=== PATIENT | male | born 1990 | race Caucasian/White ===

== ENCOUNTER 2019-06-19 11:50 | Inpatient (IN) | payer OTHER ==
[2019-06-19] MEDS ORDERED: KETOROLAC TROMETHAMINE 30 MG/1 ML VIAL IVPUSH ONE (12:16)
[2019-06-19] MEDS ORDERED: SODIUM CHLORIDE 1,000 ML IV STA ×2 (12:16→14:19)
[2019-06-19 12:47] LABS: BASO % 0.6 % (0-2.0); EOS % 2.1 % (0-4.5); HEMATOCRIT 42.6 % (35.4-49); HEMOGLOBIN 14.6 GM/dL (11.7-16.9); LYMPH % 13.5 % (8-40); MCHC 34.3 g/dl (32.0-35.9); MEAN CELL VOLUME 87.3 fl (80-96); MEAN PLT VOLUME 7.5 fl (7.5-11.1); MONO % 9.7 % (3.8-10.2); NEUT % 74.1 % (42.8-82.8); PLATELET COUNT 261 K/MM3 (134-434); RBC 4.87 M/mm3 (4.00-5.60); RDW 13.3 % (11.9-15.9); WHITE BLOOD COUNT 12.9 K/mm3 (4.0-10.0)
[2019-06-19 13:14] LABS: EPI CELLS 0.8 /HPF (0-5/HPF); HYALINE CASTS 3 /lpf (0-8); PH,URINE 5.5 (5.0-8.0); URINE APPEARANCE CLEAR; URINE BACTERIA 17.4 /hpf (NEGATIVE); URINE BILIRUBIN NEGATIVE (NEGATIVE); URINE COLOR YELLOW; URINE GLUCOSE (UA) NEGATIVE (NEGATIVE); URINE KETONE NEGATIVE (NEGATIVE); URINE LEUK ESTERASE NEGATIVE (NEGATIVE); URINE NITRITE NEGATIVE (NEGATIVE); URINE PROTEIN 2+ (NEGATIVE); URINE RBC 2 /hpf (0-4); URINE UROBILINOGEN 0.2 mg/dL (0.2-1.0); URINE WBC 1 /hpf (0-5)
[2019-06-19 13:14] LABS: ALBUMIN 3.6 g/dl (3.4-5.0); BILIRUBIN,TOTAL 0.5 mg/dL (0.2-1); CALCIUM 8.8 mg/dL (8.5-10.1); CREATININE 2.1 mg/dL (0.55-1.3); POTASSIUM 3.8 mmol/L (3.5-5.1); TOT PROT 6.9 g/dl (6.4-8.2)
--- NOTE | 2019-06-19 14:06 | PDOC ---
History of Present Illness - General History Source: Patient Exam Limitations: No Limitations - History of Present Illness Travel History: No Initial Comments: 06/19/19 14:07 29-year-old otherwise healthy male presents to ED with complaints of bilateral flank pain urinary pressure and suprapubic pressure upon urination. Patient denies history of renal colic, recent illness, recent travel, history of UTI, daily Motrin usage or blood in urine. Patient denies nausea, fever, chills, headache, change in bowel pattern, or skin discoloration Timing/Duration: reports: intermittent Quality: reports: moderate, fullness Abdominal Pain Onset Location: reports: flank Pain Radiation: reports: back, other (Suprapubic) Activities at Onset: reports: none Aggravating Factors: improves with: None Alleviating Factors: improves with: None <Mariaa Freitas - Last Filed: 06/20/19 09:21> <Martin Rivera - Last Filed: 06/24/19 20:11> - General Chief Complaint: Pain, Acute Stated Complaint: PAIN Time Seen by Provider: 06/19/19 12:14 Past History - Travel Traveled outside of the country in the last 30 days: No Close contact w/someone who was outside of country & ill: No - Past Medical History COPD: No - Psycho Social/Smoking Cessation Hx Smoking History: Never smoked Hx Alcohol Use: Yes (Socially on weekends) Substance Use Type: Alcohol Patient Lives Alone: No Lives with/in: spouse/SO <Mariaa Freitas - Last Filed: 06/20/19 09:21> <Martin Rivera - Last Filed: 06/24/19 20:11> - Past Medical History Allergies/Adverse Reactions: Allergies Allergy/AdvReac Type Severity Reaction Status Date / Time No Known Allergies Allergy Verified 06/19/19 13:18 Home Medications: Ambulatory Orders NK [No Known Home Medication] 06/19/19 Review of Systems - Review of Systems Able to Perform ROS?: No Constitutional: No: Symptoms Reported HEENTM: No: Symptoms Reported Respiratory: No: Symptoms reported Cardiac (ROS): No: Symptoms Reported ABD/GI: Yes: Abdominal cramping : Yes: Dysuria, Flank Pain. No: Discharge, Hematuria, Testicular Mass, Testicular Swelling, Testicular Pain Integumentary: No: Symptoms Reported Neurological: No: Symptoms reported Endocrine: No: Symptoms Reported Hematologic/Lymphatic: No: Symptoms Reported <Mariaa Freitas - Last Filed: 06/20/19 09:21> *Physical Exam - Vital Signs Last Vital Signs Temp Pulse Resp BP Pulse Ox 98.1 F 65 18 143/81 98 06/19/19 11:58 06/19/19 11:58 06/19/19 11:58 06/19/19 11:58 06/19/19 11:58 - Physical Exam General Appearance: Yes: Nourished, Appropriately Dressed. No: Apparent Distress HEENT: positive: EOMI, SURAJ, TMs Normal, Pharynx Normal. negative: Pale Conjunctivae Neck: positive: Supple Respiratory/Chest: positive: Lungs Clear, Normal Breath Sounds. negative: Respiratory Distress, Accessory Muscle Use Cardiovascular: positive: Regular Rhythm, Regular Rate. negative: Murmur Gastrointestinal/Abdominal: positive: Soft, Tenderness (Bilateral flank ) Musculoskeletal: negative: CVA Tenderness Extremity: positive: Normal Inspection Integumentary: positive: Normal Color, Warm, Moist Neurologic: positive: Motor Strength 5/5 (Ambulatory) <Mariaa Freitas - Last Filed: 06/20/19 09:21> - Vital Signs Last Vital Signs Temp Pulse Resp BP Pulse Ox 98.2 F 69 18 131/82 100 06/24/19 10:00 06/24/19 10:00 06/24/19 10:00 06/24/19 10:00 06/23/19 09:00 <Martin Rivera - Last Filed: 06/24/19 20:11> ED Treatment Course - LABORATORY CBC & Chemistry Diagram: 06/20/19 06:50 06/20/19 06:50 - ADDITIONAL ORDERS Additional order review: Laboratory Results 06/19/19 06/19/19 06/19/19 12:45 12:35 12:35 Sodium 141 Potassium 3.8 Chloride 107 Carbon Dioxide 29 Anion Gap 5 L BUN 19.0 H Creatinine 2.1 H Est GFR (CKD-EPI)AfAm 47.19 Est GFR (CKD-EPI)NonAf 40.72 Random Glucose 106 Calcium 8.8 Total Bilirubin 0.5 AST 22 ALT 50 Alkaline Phosphatase 145 H Total Protein 6.9 Albumin 3.6 Lipase 104 Urine Color Yellow Urine Appearance Clear Urine pH 5.5 Ur Specific [place] 1.007 L Urine Protein 2+ H Urine Glucose (UA) Negative Urine Ketones Negative Urine Blood 2+ H Urine Nitrite Negative Urine Bilirubin Negative Urine Urobilinogen 0.2 Ur Leukocyte Esterase Negative Urine WBC (Auto) 1 Urine RBC (Auto) 2 Urine Casts (Auto) 3 U Epithel Cells (Auto) 0.8 Urine Bacteria (Auto) 17.4 06/19/19 12:35 RBC 4.87 MCV 87.3 MCHC 34.3 RDW 13.3 MPV 7.5 Neutrophils % 74.1 Lymphocytes % 13.5 Monocytes % 9.7 Eosinophils % 2.1 Basophils % 0.6 - RADIOLOGY Radiology Studies Ordered: Category Date Time Status KIDNEY / RENAL US [US] Stat Ultrasound 06/19/19 13:59 Ordered - Medications Given in the ED: ED Medications Discontinued Medications Generic Name Dose Route Start Last Admin Trade Name Freq PRN Reason Stop Dose Admin Sodium Chloride 1,000 mls @ 1,000 mls/hr 06/19/19 12:16 06/19/19 12:51 Normal Saline - IV 06/19/19 13:15 1,000 mls/hr ASDIR STA Administration Ketorolac Tromethamine 30 mg 06/19/19 12:16 06/19/19 12:51 Toradol Injection - IVPUSH 06/19/19 12:17 30 mg ONCE ONE Administration <Mariaa Freitas - Last Filed: 06/20/19 09:21> - LABORATORY CBC & Chemistry Diagram: 06/23/19 07:15 06/24/19 07:15 - ADDITIONAL ORDERS Additional order review: 06/19/19 12:45 Urine Culture - Final Urine - Urine Clean Catch NO GROWTH OBTAINED 06/19/19 12:35 RBC 4.87 MCV 87.3 MCHC 34.3 RDW 13.3 MPV 7.5 Neutrophils % 74.1 Lymphocytes % 13.5 Monocytes % 9.7 Eosinophils % 2.1 Basophils % 0.6 - Medications Given in the ED: ED Medications Discontinued Medications Generic Name Dose Route Start Last Admin Trade Name Freq PRN Reason Stop Dose Admin Acetaminophen 1,000 mg 06/20/19 05:19 06/20/19 05:30 Ofirmev Injection - IVPB 06/20/19 05:20 1,000 mg ONCE ONE Administration Acetaminophen 650 mg 06/20/19 17:31 06/23/19 02:04 Tylenol - PO 650 mg Q6H PRN Administration PAIN LEVEL 1 - 3 Acetaminophen 1,000 mg 06/20/19 18:04 06/20/19 18:58 Ofirmev Injection - IVPB 06/20/19 18:05 1,000 mg ONCE ONE Administration Famotidine 20 mg 06/21/19 13:45 06/24/19 09:08 Pepcid - PO 20 mg DAILY GISELE Administration Heparin Sodium (Porcine) 5,000 unit 06/20/19 14:00 06/21/19 22:31 Heparin - SQ 5,000 unit TID GISELE Administration Sodium Chloride 1,000 mls @ 1,000 mls/hr 06/19/19 12:16 06/19/19 12:51 Normal Saline - IV 06/19/19 13:15 1,000 mls/hr ASDIR STA Administration Sodium Chloride 1,000 mls @ 1,000 mls/hr 06/19/19 14:19 06/19/19 14:43 Normal Saline - IV 06/19/19 15:18 1,000 mls/hr ASDIR STA Administration Sodium Chloride 1,000 mls @ 83 mls/hr 06/19/19 19:45 06/19/19 20:05 Normal Saline - IV Not Given ASDIR GISELE Ceftriaxone Sodium 1 gm/ 50 mls @ 100 mls/hr 06/19/19 19:45 06/19/19 20:04 Dextrose IVPB 100 mls/hr DAILY GISELE Administration Protocol Sodium Chloride 1,000 mls @ 100 mls/hr 06/19/19 20:00 06/24/19 10:51 1/2 Normal Saline IV Not Given ASDIR GISELE Ketorolac Tromethamine 30 mg 06/19/19 12:16 06/19/19 12:51 Toradol Injection - IVPUSH 06/19/19 12:17 30 mg ONCE ONE Administration Ondansetron HCl 4 mg 06/20/19 18:04 06/20/19 18:52 Zofran Injection IVPB 4 mg Q8H PRN Administration NAUSEA <Martin Rivera - Last Filed: 06/24/19 20:11> Medical Decision Making - Medical Decision Making 06/19/19 13:20 Chief complaint: Bilateral flank pain with pain upon urination causing pressure to the suprapubic area. No other complaints Patient went to urgent care clinic and was sent here for further evaluation. Exam: Bilateral flank tenderness with no CVA tenderness vital signs stable. Plan: Urine, labs, Toradol, IV fluids and will consider imaging 06/19/19 14:21 Laboratory Tests 06/19/19 06/19/19 06/19/19 12:35 12:35 12:35 WBC 12.9 H Hgb 14.6 Hct 42.6 Absolute Neuts (auto) 9.5 H Sodium 141 Potassium 3.8 Chloride 107 Carbon Dioxide 29 Anion Gap 5 L BUN 19.0 H Creatinine 2.1 H Est GFR (CKD-EPI)AfAm 47.19 Est GFR (CKD-EPI)NonAf 40.72 Random Glucose 106 Calcium 8.8 Total Bilirubin 0.5 AST 22 ALT 50 Alkaline Phosphatase 145 H Total Protein 6.9 Albumin 3.6 Lipase 104 Ur Specific [place] Urine Protein Urine Ketones Urine Blood Urine Nitrite Urine Bilirubin Ur Leukocyte Esterase Urine WBC (Auto) Urine RBC (Auto) Urine Bacteria (Auto) C. trachomatis (JOSIAH) N. gonorrhoeae (JOSIAH) 06/19/19 06/19/19 12:45 12:45 WBC Hgb Hct Absolute Neuts (auto) Sodium Potassium Chloride Carbon Dioxide Anion Gap BUN Creatinine Est GFR (CKD-EPI)AfAm Est GFR (CKD-EPI)NonAf Random Glucose Calcium Total Bilirubin AST ALT Alkaline Phosphatase Total Protein Albumin Lipase Ur Specific [place] 1.007 L Urine Protein 2+ H Urine Ketones Negative Urine Blood 2+ H Urine Nitrite Negative Urine Bilirubin Negative Ur Leukocyte Esterase Negative Urine WBC (Auto) 1 Urine RBC (Auto) 2 Urine Bacteria (Auto) 17.4 C. trachomatis (JOSIAH) Pending N. gonorrhoeae (JOSIAH) Pending Noted elevated creatinine and white count. Patient received 1 L of fluid will repeat and order a second. Patient also ordered for kidney ultrasound. patient denies excessive protein intake or diet pills. 06/19/19 14:56 Ultrasound shows both kidneys appear unremarkable without evidence of hydronephrosis or gross renal stones. Patient awaiting repeat BMP <Mariaa Freitas - Last Filed: 06/20/19 09:21> - Medical Decision Making The patient was seen and evaluated in conjunction with PATRICK Freitas under my direct supervision, ancillary studies were reviewed. I independently interviewed and evaluated the patient and I agree with the plan as outlined by PATRICK Freitas. 29y M no pmhx presents with b/l flank pain and Pressure-like sensation when urinating. Patient denies any fever, chills, nausea, vomiting, history of kidney stones recent travel, dysuria. The patient's blood work was reviewed noted for creatinine of 2.1 which is new for the patient, Patient noted to have 2+ blood on urine. Renal ultrasound reveals no signs of hydro. CT abd also did not revewal any acute findings. The patient was Hydrated and his creatinine was rechecked, it is largely unchanged and the patient was admitted for further management of YISEL. <Martin Rivera - Last Filed: 06/24/19 20:11> Discharge - Discharge Information Problems reviewed: Yes <Mariaa Freitas - Last Filed: 06/20/19 09:21> <Martin Rivera - Last Filed: 06/24/19 20:11> - Discharge Information Clinical Impression/Diagnosis: Acute kidney injury Condition: Improved Disposition: HOME
[2019-06-19 16:41] LABS: CALCIUM 7.9 mg/dL (8.5-10.1); POTASSIUM 3.9 mmol/L (3.5-5.1)
--- NOTE | 2019-06-19 17:36 | PDOC ---
*Physical Exam - Vital Signs Last Vital Signs Temp Pulse Resp BP Pulse Ox 99.3 F 61 18 127/74 98 06/19/19 16:47 06/19/19 16:47 06/19/19 11:58 06/19/19 16:47 06/19/19 16:47 - Physical Exam 06/19/19 17:34 Patient endorsed to me to follow BMP Patient seen and evaluated 06/19/19 17: ED Treatment Course - LABORATORY CBC & Chemistry Diagram: 06/19/19 12:35 06/19/19 15:00 - ADDITIONAL ORDERS Additional order review: Laboratory Results 06/19/19 06/19/19 06/19/19 15:00 12:45 12:35 Sodium 143 Potassium 3.9 Chloride 110 H Carbon Dioxide 28 Anion Gap 5 L BUN 20.0 H Creatinine 2.0 H Est GFR (CKD-EPI)AfAm 50.06 Est GFR (CKD-EPI)NonAf 43.19 Random Glucose 97 Calcium 7.9 L Total Bilirubin AST ALT Alkaline Phosphatase Total Protein Albumin Lipase 104 Urine Color Yellow Urine Appearance Clear Urine pH 5.5 Ur Specific [place] 1.007 L Urine Protein 2+ H Urine Glucose (UA) Negative Urine Ketones Negative Urine Blood 2+ H Urine Nitrite Negative Urine Bilirubin Negative Urine Urobilinogen 0.2 Ur Leukocyte Esterase Negative Urine WBC (Auto) 1 Urine RBC (Auto) 2 Urine Casts (Auto) 3 U Epithel Cells (Auto) 0.8 Urine Bacteria (Auto) 17.4 06/19/19 12:35 Sodium 141 Potassium 3.8 Chloride 107 Carbon Dioxide 29 Anion Gap 5 L BUN 19.0 H Creatinine 2.1 H Est GFR (CKD-EPI)AfAm 47.19 Est GFR (CKD-EPI)NonAf 40.72 Random Glucose 106 Calcium 8.8 Total Bilirubin 0.5 AST 22 ALT 50 Alkaline Phosphatase 145 H Total Protein 6.9 Albumin 3.6 Lipase Urine Color Urine Appearance Urine pH Ur Specific [place] Urine Protein Urine Glucose (UA) Urine Ketones Urine Blood Urine Nitrite Urine Bilirubin Urine Urobilinogen Ur Leukocyte Esterase Urine WBC (Auto) Urine RBC (Auto) Urine Casts (Auto) U Epithel Cells (Auto) Urine Bacteria (Auto) 06/19/19 12:35 RBC 4.87 MCV 87.3 MCHC 34.3 RDW 13.3 MPV 7.5 Neutrophils % 74.1 Lymphocytes % 13.5 Monocytes % 9.7 Eosinophils % 2.1 Basophils % 0.6 - Medications Given in the ED: ED Medications Discontinued Medications Generic Name Dose Route Start Last Admin Trade Name Alex PRN Reason Stop Dose Admin Sodium Chloride 1,000 mls @ 1,000 mls/hr 06/19/19 12:16 06/19/19 12:51 Normal Saline - IV 06/19/19 13:15 1,000 mls/hr ASDIR STA Administration Sodium Chloride 1,000 mls @ 1,000 mls/hr 06/19/19 14:19 06/19/19 14:43 Normal Saline - IV 06/19/19 15:18 1,000 mls/hr ASDIR STA Administration Ketorolac Tromethamine 30 mg 06/19/19 12:16 06/19/19 12:51 Toradol Injection - IVPUSH 06/19/19 12:17 30 mg ONCE ONE Administration Medical Decision Making - Medical Decision Making 06/19/19 19:06 Patient endorsed to me to follow lab work and disposition. Patient seen and evaluated states his issues started what he thought was a viral illness, chills and subjective fever which started 5 days ago. Then had some back pressure which progressed to back pain 3 days ago. States he has had no urinary issues in the past however for the past few days he has been having to get up about 4 times to use the bathroom. Lab work reviewed noted patient had an elevated BUN and creatinine. Patient received 2 L of fluid and a repeat BMP showed no improvement in BUN and creatinine Discharge - Discharge Information Problems reviewed: Yes Clinical Impression/Diagnosis: Acute kidney injury Condition: Stable - Admission Yes - Follow up/Referral Referrals: Ortiz Crowder MD [Primary Care Provider] - - Patient Discharge Instructions - Post Discharge Activity
--- NOTE | 2019-06-19 19:44 | PN ---
Teaching Attending Note Name of Resident: Kevin Rosa ATTENDING PHYSICIAN STATEMENT I saw and evaluated the patient. I reviewed the resident's note and discussed the case with the resident. I agree with the resident's findings and plan as documented. SUBJECTIVE: 29-year-old otherwise healthy male presenting complaining of bilateral flank pain, Hoarseness, muscle aches with urinary pressure and suprapubic pressure when attempting to urinate. Denies any history of kidney stones, UTIs. Denied any fevers, chills, nausea, vomiting or bowel movement changes. No reported history of any renal disease. OBJECTIVE: Last Vital Signs Temp Pulse Resp BP Pulse Ox 99.3 F 61 18 127/74 98 06/19/19 16:47 06/19/19 16:47 06/19/19 11:58 06/19/19 16:47 06/19/19 16:47 GENERAL: Well developed, well nourished. Awake and alert. No acute distress. HEENT: Normocephalic, atraumatic. PERRLA, EOMI. No conjunctival pallor. Sclera are non- icteric. Enlarged tonsils bilaterally, injected pharynx. Oropharynx is clear. NECK: Supple. Full ROM. No JVD. Carotid pulses 2+ and symmetric, without bruits. No thyromegaly. No lymphadenopathy. CARDIOVASCULAR: Regular rate and rhythm. No murmurs, rubs, or gallops. Distal pulses are 2+ and symmetric. PULMONARY: No evidence of respiratory distress. Lungs clear to auscultation bilaterally. No wheezing, rales or rhonchi. ABDOMINAL: Soft. Non-tender. Non-distended. No rebound or guarding. No organomegaly. Normoactive bowel sounds. MUSCULOSKELETAL Normal range of motion at all joints. No bony deformities or tenderness. No CVA tenderness. EXTREMITIES: No cyanosis. No clubbing. No edema. No calf tenderness. SKIN: Warm and dry. Normal capillary refill. No rashes. No jaundice. PSYCHIATRIC: Cooperative. Good eye contact. Appropriate mood and affect. Abnormal Lab Results 06/19/19 06/19/19 06/19/19 12:35 12:35 12:45 WBC 12.9 H Absolute Neuts (auto) 9.5 H Chloride Anion Gap 5 L BUN 19.0 H Creatinine 2.1 H Calcium Alkaline Phosphatase 145 H Ur Specific [place] 1.007 L Urine Protein 2+ H Urine Blood 2+ H 06/19/19 15:00 WBC Absolute Neuts (auto) Chloride 110 H Anion Gap 5 LDVT prophylaxisheparin subcutaneously BUN 20.0 H Creatinine 2.0 H Calcium 7.9 L Alkaline Phosphatase Ur Specific [place] Urine Protein Urine Blood Imaging studies reviewed Renal ultrasound reviewedboth kidneys appeared unremarkable without evidence of hydronephrosis or gross renal stones. ASSESSMENT AND PLAN: 29-year-old male with bilateral flank pain, CKD versus [place] prior comparison, 2+ blood and UA, leukocytosisconcerning for possible nephrolithiasis however CT of abdomen pelvis was negative. Suspect possible underlying upper respiratory infection. Influenza swab was negative. Admit to [facility] IV fluid hydration Urine culture pain Tylenol PRN Avoid renal toxins Urine GC chlamydia NAAT I's and O's and daily weights Urine lites DVT prophylaxisheparin subcutaneously
--- NOTE | 2019-06-19 19:44 | CONSULT ---
Consult Consult Specialty:: Nephrology Reason for Consultation:: YISEL - History of Present Illness Chief Complaint: pain on urination History of Present Illness: Pt is a 29 year old male with pmhx of sciatica who presents to the ER with bilateral flank pain and with dysuria. He denies hematuria. He does complain of burning on urination. He was found to be in acute renal failure and I was called to evaluate him. He denies history of renal disease. He denies family history of renal disease from his mother's side. He does take advil and naproxen almost daily. His is with him and says that he does take "alot" of nsaids for pain. He denies shortness of breath or palpitations. He denies fevers but did have chills. - History Source History Provided By: Patient, Family Member - Past Medical History Musculoskeletal: Yes: Other (sciatica) - Alcohol/Substance Use Hx Alcohol Use: Yes (Socially on weekends) - Smoking History Smoking history: Never smoked Home Medications - Allergies Allergies/Adverse Reactions: Allergies Allergy/AdvReac Type Severity Reaction Status Date / Time No Known Allergies Allergy Verified 06/19/19 13:18 - Home Medications Home Medications: Ambulatory Orders NK [No Known Home Medication] 06/19/19 Family Medical History Family History: Denies Review of Systems - Review of Systems Constitutional: reports: Malaise Eyes: reports: No Symptoms HENT: reports: No Symptoms Neck: reports: No Symptoms Cardiovascular: reports: No Symptoms Respiratory: reports: No Symptoms Gastrointestinal: reports: No Symptoms Genitourinary: reports: Dysuria, Flank Pain Musculoskeletal: reports: No Symptoms Integumentary: reports: No Symptoms Neurological: reports: No Symptoms Endocrine: reports: No Symptoms Hematology/Lymphatic: reports: No Symptoms Psychiatric: reports: No Symptoms Physical Exam Vital Signs: Vital Signs Temperature 99.3 F 06/19/19 16:47 Pulse Rate 61 06/19/19 16:47 Respiratory Rate 18 06/19/19 11:58 Blood Pressure 127/74 06/19/19 16:47 O2 Sat by Pulse Oximetry (%) 98 06/19/19 16:47 Constitutional: Yes: Calm Eyes: Yes: Conjunctiva Clear HENT: Yes: Atraumatic Neck: Yes: Supple Cardiovascular: Yes: S1, S2 Respiratory: Yes: CTA Bilaterally Gastrointestinal: Yes: Normal Bowel Sounds, Soft Renal/: Yes: Other (dysuria, tenderness over bladder). No: CVA Tenderness - Left, CVA Tenderness - Right Musculoskeletal: Yes: WNL Edema: No Neurological: Yes: Oriented Psychiatric: Yes: Oriented Labs: CBC, BMP 06/19/19 12:35 06/19/19 15:00 Imaging - Results Ultrasound: Report Reviewed Problem List - Problems (1) Acute kidney injury Code(s): N17.9 - ACUTE KIDNEY FAILURE, UNSPECIFIED Assessment/Plan Current Medications Generic Name Dose Route Start Last Admin Trade Name Freq PRN Reason Stop Dose Admin Sodium Chloride 1,000 mls @ 83 mls/hr 06/19/19 19:45 Normal Saline - IV ASDIR GISELE Impression 1. YISEL 2. UTI/cystitis 3. sciatica 4. nsaid use 5. proteinuria with hematuria Plan - start fluids - repeat labs in am - renal ultrasound report reviewed - send urine and blood cultures - cover with abx for now - send urine eos - check urine lytes and painter airbrush - if there is no improvement in renal function will order further workup - stop nsaids
[2019-06-19] MEDS ORDERED: SODIUM CHLORIDE 1,000 ML IV SCH (19:45)
[2019-06-19] MEDS ORDERED: CEFTRIAXONE 1 GM in DEXTROSE 5%-WATER - 50 ML IVPB SCH (19:45)
[2019-06-19] MEDS ORDERED: CEFTRIAXONE 1 GM/50 ML BAG ONE (19:56)
[2019-06-19] MEDS: SODIUM CHLORIDE 0.45% 1,000 ML IV SCH (20:04)
--- NOTE | 2019-06-19 20:12 | HP ---
CHIEF COMPLAINT: Flank pain, chills and dysuria PCP: Dr. Ortiz Crowder however Pt. has never seen this physician yet. HISTORY OF PRESENT ILLNESS: Pt. is a previously healthy 29 y.o. M presents with bilateral lower back pain since . Pt. states that he has been urinating more frequently over the last 2 days, every 40-50 min, and it is associated with increasing pain in the lower abdomen that radiates up bilaterally to the right and left upper quadrants. Pt. also endorses increasing flank pain during urination. Pt. states that on Friday he had an episode of chills and too Theraflu for it. 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 Pt. endorses last taking Ibuprofen 1 month ago " three or four 200mg tablets" and then last 2 weeks before that. Per also present Pt. takes "alot of ibuprofen." Pt. denies any burning sensation at the penis but rather abdominal pain during urination. Pt. denies any blood in his urine or stool. Pt. states that he uses 2 pillows at night to sleep because of shortness of breath when lying flat. Pt. dneies any history of chest pain or dyspena on exertion. Pt. carries up to 80 pounds of material at his job daily and denies decrease in functional status. Currently after receiving Toradol Pt. states he feels much better. Pt. has not received the Flu vaccine. Pt .states is is sexually active with only his and denies being tested for STDs. Pt. is amenable to being tested for HIV. Pt. denies nausea, vomiting, constipation, or diarrhea. ER course was notable for: (1) Toradol, 2L NS, Renal US (2) UA/UCx., CBC, CMP, GC (3) Recent Travel: No PAST MEDICAL HISTORY: As above PAST SURGICAL HISTORY: Denies Social History: Smoking: Denies Alcohol: 3-4 drinks per week Drugs: Remote use of cocaine x 2 when 16 Family Hx.: Grandmother has HTN; Mother had episode of blue urine 25 years ago while on antibiotics Allergies No Known Allergies Allergy (Verified 06/19/19 13:18) HOME MEDICATIONS: Home Medications Medication Instructions Recorded NK [No Known Home Medication] 06/19/19 REVIEW OF SYSTEMS As above PHYSICAL EXAMINATION Vital Signs - 24 hr 06/19/19 06/19/19 11:58 16:47 Temperature 98.1 F 99.3 F Pulse Rate 65 Pulse Rate [ 61 Left Apical] Respiratory 18 Rate Blood Pressure 143/81 Blood Pressure 127/74 [Right Arm] O2 Sat by Pulse 98 98 Oximetry (%) GENERAL: Awake, alert, and fully oriented, in no acute distress. HEAD: Normal with no signs of trauma. EYES: sclera anicteric, conjunctiva clear. EARS, NOSE, THROAT: Moist mucous membranes. LUNGS: Breath sounds equal, clear to auscultation bilaterally. No wheezes, and no crackles. No accessory muscle use. HEART: Regular rate and rhythm, normal S1 and S2 ABDOMEN: BS+, soft, abdominal discomfort on deep palpation, umbilical hernia, On rectal examination, no external or internal hemorrhoids, no harsha blood, good rectal tone, tender prostate MUSCULOSKELETAL: Normal range of motion at all joints. No bony deformities or tenderness. L. CVA tenderness. UPPER EXTREMITIES: 2+ radial pulses, warm, well-perfused. No cyanosis. No clubbing. No peripheral edema. LOWER EXTREMITIES: Warm, well-perfused. No calf tenderness. No peripheral edema. NEUROLOGICAL: Normal speech. Normal gait. PSYCHIATRIC: Cooperative. Good eye contact. Appropriate mood and affect. SKIN: Warm, dry, normal turgor, no rashes or lesions noted Laboratory Results - last 24 hr 06/19/19 06/19/19 06/19/19 12:35 12:35 12:35 WBC 12.9 H RBC 4.87 Hgb 14.6 Hct 42.6 MCV 87.3 MCH 30.0 MCHC 34.3 RDW 13.3 Plt Count 261 MPV 7.5 Absolute Neuts (auto) 9.5 H Neutrophils % 74.1 Lymphocytes % 13.5 Monocytes % 9.7 Eosinophils % 2.1 Basophils % 0.6 Nucleated RBC % 0 Sodium 141 Potassium 3.8 Chloride 107 Carbon Dioxide 29 Anion Gap 5 L BUN 19.0 H Creatinine 2.1 H Est GFR (CKD-EPI)AfAm 47.19 Est GFR (CKD-EPI)NonAf 40.72 Random Glucose 106 Calcium 8.8 Total Bilirubin 0.5 AST 22 ALT 50 Alkaline Phosphatase 145 H Total Protein 6.9 Albumin 3.6 Lipase 104 Urine Color Urine Appearance Urine pH Ur Specific [place] Urine Protein Urine Glucose (UA) Urine Ketones Urine Blood Urine Nitrite Urine Bilirubin Urine Urobilinogen Ur Leukocyte Esterase Urine WBC (Auto) Urine RBC (Auto) Urine Casts (Auto) U Epithel Cells (Auto) Urine Bacteria (Auto) 06/19/19 06/19/19 12:45 15:00 WBC RBC Hgb Hct MCV MCH MCHC RDW Plt Count MPV Absolute Neuts (auto) Neutrophils % Lymphocytes % Monocytes % Eosinophils % Basophils % Nucleated RBC % Sodium 143 Potassium 3.9 Chloride 110 H Carbon Dioxide 28 Anion Gap 5 L BUN 20.0 H Creatinine 2.0 H Est GFR (CKD-EPI)AfAm 50.06 Est GFR (CKD-EPI)NonAf 43.19 Random Glucose 97 Calcium 7.9 L Total Bilirubin AST ALT Alkaline Phosphatase Total Protein Albumin Lipase Urine Color Yellow Urine Appearance Clear Urine pH 5.5 Ur Specific [place] 1.007 L Urine Protein 2+ H Urine Glucose (UA) Negative Urine Ketones Negative Urine Blood 2+ H Urine Nitrite Negative Urine Bilirubin Negative Urine Urobilinogen 0.2 Ur Leukocyte Esterase Negative Urine WBC (Auto) 1 Urine RBC (Auto) 2 Urine Casts (Auto) 3 U Epithel Cells (Auto) 0.8 Urine Bacteria (Auto) 17.4 ASSESSMENT/PLAN: Pt. is a previously healthy 29 y.o. M presents with bilateral lower back pain since . Pt. states that he has been urinating more frequently over the last 2 days, every 40-50 min, and it is associated with increasing pain in the lower abdomen that radiates up bilaterally to the right and left upper quadrants. Pt. admitted for acute Renal failure. #Acute Renal Failure BUN/Cr.: 19/2.1---> after 1 L NS---> 20/2.0 eGFR: 43 UA: 2+ protein, 2+ blood, low specific gravity : 1.007 Renal US negative, f/u Abdominal CT Renal failure likely due to NSAID use, will rule out concomitant stone and infection Will obtain BCx, f/u UCx. F/u Rpt. UA, urine electrolytes and eosinophils Will treat emprically with Ceftriaxone as Pt. has L. CVA tenderness and WBC count to 12.9. If stone is not found will cancel antibiotic. Pt. reports chills 5 days ago and no fever here but will obtain CT scan to evaluate for other abdominal etiologies. Elevated WBC count is within the range for stress as the causative factor for elevation Consult to Nephrology (Dr. Feliz) appreciated Avoid NSAIDs #FEN NS @ 100 monitor electrolytes and replete as needed Regular Diet #DVT Ppx. Early Ambulation Visit type - Emergency Visit Emergency Visit: Yes ED Registration Date: 06/19/19 Care time: The patient presented to the Emergency Department on the above date and was hospitalized for further evaluation of their emergent condition. - New Patient This patient is new to me today: Yes Date on this admission: 06/19/19 - Critical Care Critical Care patient: No ATTENDING PHYSICIAN STATEMENT I saw and evaluated the patient. I reviewed the resident's note and discussed the case with the resident. I agree with the resident's findings and plan as documented. SUBJECTIVE: OBJECTIVE: ASSESSMENT AND PLAN:
[2019-06-19 23:10] VITALS: BMI 28.5
[2019-06-20 00:10] LABS: EPI CELLS 2.1 /HPF (0-5/HPF); HYALINE CASTS 3 /lpf (0-8); URINE APPEARANCE CLEAR; URINE BACTERIA 33.7 /hpf (NEGATIVE); URINE BILIRUBIN NEGATIVE (NEGATIVE); URINE COLOR YELLOW; URINE GLUCOSE (UA) 1+ (NEGATIVE); URINE KETONE NEGATIVE (NEGATIVE); URINE LEUK ESTERASE NEGATIVE (NEGATIVE); URINE NITRITE NEGATIVE (NEGATIVE); URINE PROTEIN 2+ (NEGATIVE); URINE RBC 1 /hpf (0-4); URINE UROBILINOGEN 0.2 mg/dL (0.2-1.0); URINE WBC 2 /hpf (0-5)
[2019-06-20] MEDS ORDERED: ACETAMINOPHEN 1000 MG/100 ML VIAL (NON FORMULARY) IVPB ONE ×2 (05:19→18:04)
[2019-06-20 08:14] LABS: BILIRUBIN,TOTAL 0.7 mg/dL (0.2-1); BLOOD UREA NITROGEN 19.3 mg/dL (7-18); CALCIUM 8.5 mg/dL (8.5-10.1); CREATININE 2.4 mg/dL (0.55-1.3); MAGNESIUM 1.8 mg/dL (1.8-2.4); POTASSIUM 4.1 mmol/L (3.5-5.1)
[2019-06-20 08:19] LABS: BASO % 0.4 % (0-2.0); EOS % 2.5 % (0-4.5); HEMATOCRIT 38.7 % (35.4-49); HEMOGLOBIN 13.4 GM/dL (11.7-16.9); LYMPH % 13.9 % (8-40); MCH 30.2 pg (25.7-33.7); MCHC 34.8 g/dl (32.0-35.9); MEAN CELL VOLUME 86.9 fl (80-96); MEAN PLT VOLUME 7.8 fl (7.5-11.1); MONO % 9.9 % (3.8-10.2); NEUT % 73.3 % (42.8-82.8); PLATELET COUNT 247 K/MM3 (134-434); RBC 4.45 M/mm3 (4.00-5.60); RDW 13.4 % (11.9-15.9); WHITE BLOOD COUNT 10.4 K/mm3 (4.0-10.0)
[2019-06-20 08:55] LABS: INR 1.07 (0.83-1.09); PROTHROMBIN TIME (PATIENT) 12.6 SEC (9.7-13.0)
--- NOTE | 2019-06-20 12:38 | PN ---
Progress Note (short form) - Note Progress Note: Subjective: no fever or chills. reports lumbar paraspinal pain , which is better today. no abd pain today but previously had the back pain radiates to his groins. complains of h/o sciatica, plays soccer. heavy ibuprofen use . reports fever and chills few days ago. has sore throat Vital Signs: Last Vital Signs Temp Pulse Resp BP Pulse Ox 98.9 F 74 20 142/76 99 06/20/19 09:00 06/20/19 09:00 06/20/19 09:00 06/20/19 09:00 06/20/19 09:00 Laboratory Results - last 24 hr 06/19/19 06/19/19 06/19/19 12:35 12:35 12:35 WBC 12.9 H RBC 4.87 Hgb 14.6 Hct 42.6 MCV 87.3 MCH 30.0 MCHC 34.3 RDW 13.3 Plt Count 261 MPV 7.5 Absolute Neuts (auto) 9.5 H Neutrophils % 74.1 Lymphocytes % 13.5 Monocytes % 9.7 Eosinophils % 2.1 Basophils % 0.6 Nucleated RBC % 0 PT with INR INR Sodium 141 Potassium 3.8 Chloride 107 Carbon Dioxide 29 Anion Gap 5 L BUN 19.0 H Creatinine 2.1 H Est GFR (CKD-EPI)AfAm 47.19 Est GFR (CKD-EPI)NonAf 40.72 Random Glucose 106 Hemoglobin A1c % Calcium 8.8 Phosphorus Magnesium Total Bilirubin 0.5 AST 22 ALT 50 Alkaline Phosphatase 145 H Total Protein 6.9 Albumin 3.6 Lipase 104 TSH Urine Color Urine Appearance Urine pH Ur Specific [place] Urine Protein Urine Glucose (UA) Urine Ketones Urine Blood Urine Nitrite Urine Bilirubin Urine Urobilinogen Ur Leukocyte Esterase Urine WBC (Auto) Urine RBC (Auto) Urine Casts (Auto) U Epithel Cells (Auto) Urine Bacteria (Auto) Ur Random Creatinine U Random Total Protein Ur Random Sodium Ur Random Potassium Ur Random Chloride Urine Creatinine Protein/Creatinin Ratio Influenza A (Rapid) Influenza B (Rapid) 06/19/19 06/19/19 06/19/19 12:45 15:00 20:05 WBC RBC Hgb Hct MCV MCH MCHC RDW Plt Count MPV Absolute Neuts (auto) Neutrophils % Lymphocytes % Monocytes % Eosinophils % Basophils % Nucleated RBC % PT with INR INR Sodium 143 Potassium 3.9 Chloride 110 H Carbon Dioxide 28 Anion Gap 5 L BUN 20.0 H Creatinine 2.0 H Est GFR (CKD-EPI)AfAm 50.06 Est GFR (CKD-EPI)NonAf 43.19 Random Glucose 97 Hemoglobin A1c % Calcium 7.9 L Phosphorus Magnesium Total Bilirubin AST ALT Alkaline Phosphatase Total Protein Albumin Lipase TSH 0.49 Urine Color Yellow Urine Appearance Clear Urine pH 5.5 Ur Specific [place] 1.007 L Urine Protein 2+ H Urine Glucose (UA) Negative Urine Ketones Negative Urine Blood 2+ H Urine Nitrite Negative Urine Bilirubin Negative Urine Urobilinogen 0.2 Ur Leukocyte Esterase Negative Urine WBC (Auto) 1 Urine RBC (Auto) 2 Urine Casts (Auto) 3 U Epithel Cells (Auto) 0.8 Urine Bacteria (Auto) 17.4 Ur Random Creatinine U Random Total Protein Ur Random Sodium Ur Random Potassium Ur Random Chloride Urine Creatinine Protein/Creatinin Ratio Influenza A (Rapid) Influenza B (Rapid) 06/19/19 06/19/19 06/19/19 20:05 20:15 20:15 WBC RBC Hgb Hct MCV MCH MCHC RDW Plt Count MPV Absolute Neuts (auto) Neutrophils % Lymphocytes % Monocytes % Eosinophils % Basophils % Nucleated RBC % PT with INR INR Sodium Potassium Chloride Carbon Dioxide Anion Gap BUN Creatinine Est GFR (CKD-EPI)AfAm Est GFR (CKD-EPI)NonAf Random Glucose Hemoglobin A1c % 5.1 Calcium Phosphorus Magnesium Total Bilirubin AST ALT Alkaline Phosphatase Total Protein Albumin Lipase TSH Urine Color Urine Appearance Urine pH Ur Specific [place] Urine Protein Urine Glucose (UA) Urine Ketones Urine Blood Urine Nitrite Urine Bilirubin Urine Urobilinogen Ur Leukocyte Esterase Urine WBC (Auto) Urine RBC (Auto) Urine Casts (Auto) U Epithel Cells (Auto) Urine Bacteria (Auto) Ur Random Creatinine 109.0 U Random Total Protein 60.2 H Ur Random Sodium Ur Random Potassium Ur Random Chloride Urine Creatinine 109.0 Protein/Creatinin Ratio 0.6 Influenza A (Rapid) Influenza B (Rapid) 06/19/19 06/19/19 06/19/19 20:15 20:15 20:17 WBC RBC Hgb Hct MCV MCH MCHC RDW Plt Count MPV Absolute Neuts (auto) Neutrophils % Lymphocytes % Monocytes % Eosinophils % Basophils % Nucleated RBC % PT with INR INR Sodium Potassium Chloride Carbon Dioxide Anion Gap BUN Creatinine Est GFR (CKD-EPI)AfAm Est GFR (CKD-EPI)NonAf Random Glucose Hemoglobin A1c % Calcium Phosphorus Magnesium Total Bilirubin AST ALT Alkaline Phosphatase Total Protein Albumin Lipase TSH Urine Color Yellow Urine Appearance Clear Urine pH 6.0 Ur Specific [place] 1.010 Urine Protein 2+ H Urine Glucose (UA) 1+ H Urine Ketones Negative Urine Blood Trace Urine Nitrite Negative Urine Bilirubin Negative Urine Urobilinogen 0.2 Ur Leukocyte Esterase Negative Urine WBC (Auto) 2 Urine RBC (Auto) 1 Urine Casts (Auto) 3 U Epithel Cells (Auto) 2.1 Urine Bacteria (Auto) 33.7 Ur Random Creatinine U Random Total Protein Ur Random Sodium 55 Ur Random Potassium 13.0 L Ur Random Chloride 48 L Urine Creatinine Protein/Creatinin Ratio Influenza A (Rapid) Negative Influenza B (Rapid) Negative 06/20/19 06/20/19 06/20/19 06:50 06:50 06:50 WBC 10.4 H RBC 4.45 Hgb 13.4 Hct 38.7 MCV 86.9 MCH 30.2 MCHC 34.8 RDW 13.4 Plt Count 247 MPV 7.8 Absolute Neuts (auto) 7.6 Neutrophils % 73.3 Lymphocytes % 13.9 Monocytes % 9.9 Eosinophils % 2.5 Basophils % 0.4 Nucleated RBC % 0 PT with INR 12.60 INR 1.07 Sodium 142 Potassium 4.1 Chloride 110 H Carbon Dioxide 27 Anion Gap 5 L BUN 19.3 H Creatinine 2.4 H Est GFR (CKD-EPI)AfAm 40.15 Est GFR (CKD-EPI)NonAf 34.65 Random Glucose 92 Hemoglobin A1c % Calcium 8.5 Phosphorus 4.0 Magnesium 1.8 Total Bilirubin 0.7 AST 18 ALT 37 Alkaline Phosphatase 126 H Total Protein 6.0 L Albumin 3.0 L Lipase TSH Urine Color Urine Appearance Urine pH Ur Specific [place] Urine Protein Urine Glucose (UA) Urine Ketones Urine Blood Urine Nitrite Urine Bilirubin Urine Urobilinogen Ur Leukocyte Esterase Urine WBC (Auto) Urine RBC (Auto) Urine Casts (Auto) U Epithel Cells (Auto) Urine Bacteria (Auto) Ur Random Creatinine U Random Total Protein Ur Random Sodium Ur Random Potassium Ur Random Chloride Urine Creatinine Protein/Creatinin Ratio Influenza A (Rapid) Influenza B (Rapid) Physical Exam: NAD, MMM. oropharynx is erythematous with enlarged tonsils , with no exudate . No LAP in neck CV: RRR, no MRG Lungs: CTAB Abd: sfot, NT, ND , NL BS Ext : No edema or erythema or rash MS: TTP over lumbar paraspinal muscles . Imaging: CT of abd pelvis and US reports reviewed. Assessment/Plan: 29 y/o man with h/o back pain and sciatica who presented with flank pain and was found to have YISEL 1- YISEL : no prior base line . looks euvolemic. takes ibuprofen and plays soccer. FeNA 0.7 %. proteinuria 600 mg /24 hr NSAIDs us could be causing the renal injury. Had recent sx that suggest URI/ viral infection--->? IgA nephropathy. plays soccer, has muscle aches ---> ? Rhabdo - cont IVF - check CPK ( UA with + blood but only 2 RBCs ) - check resp viral panel - check strep test - monitor Cr. further de to be determined pending response to IVF - No dysuria, no abd tenderness. no frequency. UA clean. urine cx neg ( before Abx). no need for ABx. follwo blood cx - avoid NSAIDS: received toradol in ER 2- BAck pain : has sciatica . paraspinal muscke tenderness . reports soccer ball injuries - doubt UTI /pyelo - check CPK - lumbar spine xray 3- DVT PX : heparin sq Visit type - Emergency Visit Emergency Visit: Yes ED Registration Date: 06/19/19 Care time: The patient presented to the Emergency Department on the above date and was hospitalized for further evaluation of their emergent condition. - New Patient This patient is new to me today: Yes Date on this admission: 06/20/19 - Critical Care Critical Care patient: No
--- NOTE | 2019-06-20 14:14 | EKG ---
Test Reason : Blood Pressure : / mmHG Vent. Rate : 061 BPM Atrial Rate : 061 BPM P-R Int : 146 ms QRS Dur : 090 ms QT Int : 386 ms P-R-T Axes : 068 051 035 degrees QTc Int : 388 ms NORMAL SINUS RHYTHM WITH SINUS ARRHYTHMIA NORMAL ECG Confirmed by MD DILIA, KAROL ([id number]) on 06/20/2019 2:13:50 PM Referred By: Confirmed By:KAROL DOBBS MD
[2019-06-20] MEDS: HEPARIN NA (PORCINE) 5,000 UNITS/ML 1ML VIAL SQ SCH ×2 (15:24→22:19)
[2019-06-20] MEDS: ACETAMINOPHEN 325 MG TABLET (FP) PO PRN (17:41)
[2019-06-20] MEDS ORDERED: ONDANSETRON 4 MG/2 ML VIAL IVPB PRN (18:04)
--- NOTE | 2019-06-20 18:48 | PN ---
Progress Note, Physician History of Present Illness: Pt seen and examined at bedside. He is awake and alert. He feels that the suprapubic pain is improved. He gets some left flank pain. He denies dysuria today. - Current Medication List Current Medications: Active Medications Acetaminophen (Tylenol -) 650 mg PO Q6H PRN PRN Reason: PAIN LEVEL 1 - 3 Last Admin: 06/20/19 17:41 Dose: 650 mg Heparin Sodium (Porcine) (Heparin -) 5,000 unit SQ TID GISELE Last Admin: 06/20/19 15:24 Dose: 5,000 unit Sodium Chloride (1/2 Normal Saline) 1,000 mls @ 100 mls/hr IV ASDIR GISELE Last Admin: 06/19/19 20:04 Dose: 100 mls/hr Ondansetron HCl (Zofran Injection) 4 mg IVPB Q8H PRN PRN Reason: NAUSEA - Objective Vital Signs: Vital Signs Temperature 98.1 F 06/20/19 14:38 Pulse Rate 64 06/20/19 14:38 Respiratory Rate 18 06/20/19 14:38 Blood Pressure 139/93 06/20/19 14:38 O2 Sat by Pulse Oximetry (%) 99 06/20/19 09:00 Constitutional: Yes: Calm Eyes: Yes: Conjunctiva Clear HENT: Yes: Atraumatic Cardiovascular: Yes: S1, S2 Respiratory: Yes: CTA Bilaterally Gastrointestinal: Yes: Soft Musculoskeletal: Yes: WNL Edema: No Integumentary: Yes: Tattoos Neurological: Yes: Oriented Psychiatric: Yes: Oriented Labs: CBC, BMP 06/20/19 06:50 06/20/19 06:50 INR, PTT INR 1.07 (0.83-1.09) 06/20/19 06:50 Problem List - Problems (1) Acute kidney injury Code(s): N17.9 - ACUTE KIDNEY FAILURE, UNSPECIFIED Assessment/Plan Current Medications Generic Name Dose Route Start Last Admin Trade Name Freq PRN Reason Stop Dose Admin Acetaminophen 650 mg 06/20/19 17:31 06/20/19 17:41 Tylenol - PO 650 mg Q6H PRN Administration PAIN LEVEL 1 - 3 Heparin Sodium (Porcine) 5,000 unit 06/20/19 14:00 06/20/19 15:24 Heparin - SQ 5,000 unit TID GISELE Administration Sodium Chloride 1,000 mls @ 100 mls/hr 06/19/19 20:00 06/19/19 20:04 1/2 Normal Saline IV 100 mls/hr ASDIR GISELE Administration Ondansetron HCl 4 mg 06/20/19 18:04 Zofran Injection IVPB Q8H PRN NAUSEA Impression 1. YISEL 2. UTI/cystitis 3. sciatica 4. nsaid use 5. proteinuria with hematuria Plan - cont fluids - renal function worse today - serologic workup ordered - avoid nsaids - follow cultures - hematuria on ua improved
[2019-06-20] MEDS: SODIUM CHLORIDE 0.45% 1,000 ML IV SCH (22:21)
[2019-06-21] MEDS: SODIUM CHLORIDE 0.45% 1,000 ML IV SCH ×2 (02:17→21:59)
[2019-06-21] MEDS: HEPARIN NA (PORCINE) 5,000 UNITS/ML 1ML VIAL SQ SCH ×3 (06:46→22:31)
[2019-06-21 09:04] LABS: EPI CELLS 0.4 /HPF (0-5/HPF); HYALINE CASTS 1 /lpf (0-8); PH,URINE 6.5 (5.0-8.0); URINE APPEARANCE CLEAR; URINE BACTERIA 6.4 /hpf (NEGATIVE); URINE BILIRUBIN NEGATIVE (NEGATIVE); URINE COLOR YELLOW; URINE GLUCOSE (UA) NEGATIVE (NEGATIVE); URINE KETONE NEGATIVE (NEGATIVE); URINE LEUK ESTERASE NEGATIVE (NEGATIVE); URINE NITRITE NEGATIVE (NEGATIVE); URINE PROTEIN NEGATIVE (NEGATIVE); URINE RBC 4 /hpf (0-4); URINE UROBILINOGEN 0.2 mg/dL (0.2-1.0); URINE WBC 1 /hpf (0-5)
[2019-06-21 09:43] LABS: BASO % 0.5 % (0-2.0); EOS % 2.3 % (0-4.5); HEMATOCRIT 38.6 % (35.4-49); HEMOGLOBIN 13.3 GM/dL (11.7-16.9); MCHC 34.5 g/dl (32.0-35.9); MEAN CELL VOLUME 87.1 fl (80-96); MEAN PLT VOLUME 7.4 fl (7.5-11.1); MONO % 7.4 % (3.8-10.2); NEUT % 75.8 % (42.8-82.8); PLATELET COUNT 244 K/MM3 (134-434); RBC 4.43 M/mm3 (4.00-5.60); RDW 13.1 % (11.9-15.9); WHITE BLOOD COUNT 9.4 K/mm3 (4.0-10.0)
[2019-06-21 10:06] LABS: ALBUMIN 3.2 g/dl (3.4-5.0); BILIRUBIN,TOTAL 0.5 mg/dL (0.2-1); CALCIUM 8.4 mg/dL (8.5-10.1); CREATININE 3.1 mg/dL (0.55-1.3); POTASSIUM 3.9 mmol/L (3.5-5.1); TOT PROT 6.4 g/dl (6.4-8.2)
--- NOTE | 2019-06-21 15:53 | PN ---
Teaching Attending Note Name of Resident: Dorina Jones ATTENDING PHYSICIAN STATEMENT I saw and evaluated the patient. I reviewed the resident's note and discussed the case with the resident. I agree with the resident's findings and plan as documented. SUBJECTIVE: back pain is better.No abd pain, no dyuria. No fever or chills. No GE , no N/ V. has GERD sx. N OBJECTIVE: NAD, MMM. CV: RRR, no MRG Lungs: CTAB Abd: soft, NT, ND , NL BS. Ext : No edema or erythema or rash MS: TTP over lumbar paraspinal muscles o n L side . Assessment/Plan: 29 y/o man with h/o back pain and sciatica who presented with flank pain and was found to have YISEL 1- YISEL : worse today. no celar etiology yet. - will d/w dr. Feliz renal biopsy - follow serologies for vasculitis , HIV,hepatitis - cont IVF . - follow resp viral panel - follow throat cx 2- BAck pain: has sciatica .no signs of UTI - lumbar spine xray neg. back pain improved .? related to renal injury 3- DVT PX: heparin sq
--- NOTE | 2019-06-21 16:20 | PN ---
Progress Note, Physician History of Present Illness: Pt seen and examined at bedside. He is awake and alert. He denies fevers or chills. He denies dysuria. He denies rash. - Current Medication List Current Medications: Active Medications Acetaminophen (Tylenol -) 650 mg PO Q6H PRN PRN Reason: PAIN LEVEL 1 - 3 Last Admin: 06/20/19 17:41 Dose: 650 mg Famotidine (Pepcid -) 20 mg PO DAILY [facility] Heparin Sodium (Porcine) (Heparin -) 5,000 unit SQ TID GISELE Last Admin: 06/21/19 06:46 Dose: 5,000 unit Sodium Chloride (1/2 Normal Saline) 1,000 mls @ 100 mls/hr IV ASDIR GISELE Last Admin: 06/21/19 02:17 Dose: 100 mls/hr Ondansetron HCl (Zofran Injection) 4 mg IVPB Q8H PRN PRN Reason: NAUSEA Last Admin: 06/20/19 18:52 Dose: 4 mg - Objective Vital Signs: Vital Signs Temperature 98.3 F 06/21/19 14:24 Pulse Rate 66 06/21/19 14:24 Respiratory Rate 20 06/21/19 14:24 Blood Pressure 140/68 06/21/19 14:24 O2 Sat by Pulse Oximetry (%) 98 06/21/19 09:00 Constitutional: Yes: Calm Eyes: Yes: Conjunctiva Clear HENT: Yes: Atraumatic Neck: Yes: Supple Cardiovascular: Yes: S1, S2 Respiratory: Yes: CTA Bilaterally Gastrointestinal: Yes: Normal Bowel Sounds, Soft Genitourinary: Yes: WNL Musculoskeletal: Yes: WNL Edema: No Neurological: Yes: Oriented Psychiatric: Yes: Oriented Labs: CBC, BMP 06/21/19 09:15 06/21/19 09:15 INR, PTT INR 1.07 (0.83-1.09) 06/20/19 06:50 Problem List - Problems (1) Acute kidney injury Code(s): N17.9 - ACUTE KIDNEY FAILURE, UNSPECIFIED Assessment/Plan Current Medications Generic Name Dose Route Start Last Admin Trade Name Freq PRN Reason Stop Dose Admin Acetaminophen 650 mg 06/20/19 17:31 06/20/19 17:41 Tylenol - PO 650 mg Q6H PRN Administration PAIN LEVEL 1 - 3 Famotidine 20 mg 06/21/19 13:45 Pepcid - PO DAILY GISELE Heparin Sodium (Porcine) 5,000 unit 06/20/19 14:00 06/21/19 06:46 Heparin - SQ 5,000 unit TID GISELE Administration Sodium Chloride 1,000 mls @ 100 mls/hr 06/19/19 20:00 06/21/19 02:17 1/2 Normal Saline IV 100 mls/hr ASDIR GISELE Administration Ondansetron HCl 4 mg 06/20/19 18:04 06/20/19 18:52 Zofran Injection IVPB 4 mg Q8H PRN Administration NAUSEA Laboratory Tests 06/19/19 06/20/19 06/20/19 20:17 06:50 13:42 Creatinine 2.4 H Urine Protein Urine Blood JANEE Screen c-ANCA Proteinase 3 (PR3) p-ANCA Atypical p-ANCA Myeloperoxidase Ab Double Strand DNA Ab Glomerular Base Memb Ab Influenza A (Rapid) Negative Influenza B (Rapid) Negative Group A Strep Rapid Negative 06/21/19 06/21/19 06/21/19 08:30 09:15 09:15 Creatinine 3.1 H Urine Protein Negative Urine Blood Trace JANEE Screen Pending c-ANCA Pending Proteinase 3 (PR3) Pending p-ANCA Pending Atypical p-ANCA Pending Myeloperoxidase Ab Pending Double Strand DNA Ab Pending Glomerular Base Memb Ab Pending Influenza A (Rapid) Influenza B (Rapid) Group A Strep Rapid Impression 1. YISEL 2. UTI/cystitis 3. sciatica 4. nsaid use 5. proteinuria with hematuria Plan - renal function worsening - repeat labs in am - he did get a dose of ketorolac in er - discussed kidney biopsy, IR called - avoid nsaids - follow cultures - UA improving
--- NOTE | 2019-06-21 16:37 | PN ---
Physical Exam: SUBJECTIVE: Patient seen and examined at bedside. pt states that his back pain is improving. pt states that if he needs biopsy he is amenable OBJECTIVE: Vital Signs Period Temp Pulse Resp BP Sys/López Pulse Ox Last 24 Hr 98.2 F-98.4 F 65-73 15-20 122-140/68-93 98-98 GENERAL: The patient is awake, alert, and fully oriented, in no acute distress. HEAD: Normal with no signs of trauma. ENT: moist mucous membranes. LUNGS: Breath sounds equal, clear to auscultation bilaterally, no wheezes, no crackles, no accessory muscle use. HEART: Regular rate and rhythm, S1, S2 without murmur, rub or gallop. ABDOMEN: Soft, nontender, nondistended, normoactive bowel sounds, no guarding. No CVA tenderness EXTREMITIES: 2+ pulses, warm, well-perfused, no edema. NEUROLOGICAL: Cranial nerves II through XII grossly intact. Normal speech PSYCH: Normal mood, normal affect. SKIN: Warm, dry, normal turgor, no rashes or lesions noted Laboratory Last Values WBC 9.4 K/mm3 (4.0-10.0) 06/21/19 09:15 RBC 4.43 M/mm3 (4.00-5.60) 06/21/19 09:15 Hgb 13.3 GM/dL (11.7-16.9) 06/21/19 09:15 Hct 38.6 % (35.4-49) 06/21/19 09:15 MCV 87.1 fl (80-96) 06/21/19 09:15 MCH 30.0 pg (25.7-33.7) 06/21/19 09:15 MCHC 34.5 g/dl (32.0-35.9) 06/21/19 09:15 RDW 13.1 % (11.9-15.9) 06/21/19 09:15 Plt Count 244 K/MM3 (134-434) 06/21/19 09:15 MPV 7.4 fl (7.5-11.1) L 06/21/19 09:15 Absolute Neuts (auto) 7.2 K/mm3 (1.5-8.0) 06/21/19 09:15 Neutrophils % 75.8 % (42.8-82.8) 06/21/19 09:15 Lymphocytes % 14.0 % (8-40) 06/21/19 09:15 Monocytes % 7.4 % (3.8-10.2) 06/21/19 09:15 Eosinophils % 2.3 % (0-4.5) 06/21/19 09:15 Basophils % 0.5 % (0-2.0) 06/21/19 09:15 Nucleated RBC % 0 % (0-0) 06/21/19 09:15 PT with INR 12.60 SEC (9.7-13.0) 06/20/19 06:50 INR 1.07 (0.83-1.09) 06/20/19 06:50 Sodium 142 mmol/L (136-145) 06/21/19 09:15 Potassium 3.9 mmol/L (3.5-5.1) 06/21/19 09:15 Chloride 110 mmol/L (98-107) H 06/21/19 09:15 Carbon Dioxide 26 mmol/L (21-32) 06/21/19 09:15 Anion Gap 6 MMOL/L (8-16) L 06/21/19 09:15 BUN 24.0 mg/dL (7-18) H 06/21/19 09:15 Creatinine 3.1 mg/dL (0.55-1.3) H 06/21/19 09:15 Est GFR (CKD-EPI)AfAm 29.47 06/21/19 09:15 Est GFR (CKD-EPI)NonAf 25.43 06/21/19 09:15 Random Glucose 143 mg/dL (74-106) H 06/21/19 09:15 Hemoglobin A1c % 5.1 % (4.2-6.3) 06/19/19 20:05 Calcium 8.4 mg/dL (8.5-10.1) L 06/21/19 09:15 Phosphorus 4.0 mg/dL (2.5-4.9) 06/20/19 06:50 Magnesium 1.8 mg/dL (1.8-2.4) 06/20/19 06:50 Total Bilirubin 0.5 mg/dL (0.2-1) 06/21/19 09:15 AST 17 U/L (15-37) 06/21/19 09:15 ALT 33 U/L (13-61) 06/21/19 09:15 Alkaline Phosphatase 130 U/L (45-117) H 06/21/19 09:15 Creatine Kinase 97 U/L (26-308) 06/20/19 06:50 Total Protein 6.4 g/dl (6.4-8.2) 06/21/19 09:15 Albumin 3.2 g/dl (3.4-5.0) L 06/21/19 09:15 Lipase 104 U/L (73-393) 06/19/19 12:35 TSH 0.49 uIU/ml (0.358-3.74) 06/19/19 20:05 Urine Color Yellow 06/21/19 08:30 Urine Appearance Clear 06/21/19 08:30 Urine pH 6.5 (5.0-8.0) 06/21/19 08:30 Ur Specific [place] 1.006 (1.010-1.035) L 06/21/19 08:30 Urine Protein Negative (NEGATIVE) 06/21/19 08:30 Urine Glucose (UA) Negative (NEGATIVE) 06/21/19 08:30 Urine Ketones Negative (NEGATIVE) 06/21/19 08:30 Urine Blood Trace (NEGATIVE) 06/21/19 08:30 Urine Nitrite Negative (NEGATIVE) 06/21/19 08:30 Urine Bilirubin Negative (NEGATIVE) 06/21/19 08:30 Urine Urobilinogen 0.2 mg/dL (0.2-1.0) 06/21/19 08:30 Ur Leukocyte Esterase Negative (NEGATIVE) 06/21/19 08:30 Urine WBC (Auto) 1 /hpf (0-5) 06/21/19 08:30 Urine RBC (Auto) 4 /hpf (0-4) 06/21/19 08:30 Urine Casts (Auto) 1 /lpf (0-8) 06/21/19 08:30 U Epithel Cells (Auto) 0.4 /HPF (0-5/HPF) 06/21/19 08:30 Urine Bacteria (Auto) 6.4 /hpf (NEGATIVE) 06/21/19 08:30 Ur Random Creatinine 109.0 mg/dL (30-150) 06/19/19 20:15 U Random Total Protein 60.2 mg/dL (0-11.9) H 06/19/19 20:15 Ur Random Sodium 60 MMOL/L (40-220) 06/21/19 08:30 Ur Random Potassium < 9.0 MMOL/L (25-125) L 06/21/19 08:30 Ur Random Chloride 56 MMOL/L (110-250) L 06/21/19 08:30 Urine Creatinine 109.0 mg/dL (30-150) 06/19/19 20:15 Protein/Creatinin Ratio 0.6 mg/dL 06/19/19 20:15 HIV 1&2 Antibody Screen Cancelled 06/19/19 20:05 HIV P24 Antigen Cancelled 06/19/19 20:05 Influenza A (Rapid) Negative (Negative) 06/19/19 20:17 Influenza B (Rapid) Negative (Negative) 06/19/19 20:17 Group A Strep Rapid Negative (Negative) 06/20/19 13:42 Current Medications Acetaminophen (Tylenol -) 650 mg PO Q6H PRN PRN Reason: PAIN LEVEL 1 - 3 Last Admin: 06/20/19 17:41 Dose: 650 mg Famotidine (Pepcid -) 20 mg PO DAILY [facility] Last Admin: 06/21/19 17:03 Dose: 20 mg Heparin Sodium (Porcine) (Heparin -) 5,000 unit SQ TID [facility] Last Admin: 06/21/19 17:03 Dose: 5,000 unit Sodium Chloride (1/2 Normal Saline) 1,000 mls @ 100 mls/hr IV ASDIR [facility] Last Admin: 06/21/19 02:17 Dose: 100 mls/hr Ondansetron HCl (Zofran Injection) 4 mg IVPB Q8H PRN PRN Reason: NAUSEA Last Admin: 06/20/19 18:52 Dose: 4 mg ASSESSMENT/PLAN: 29 yo M PMH of Sciatica presented to [facility] for LBP and found to be in acute renal failure Acute Renal failure: unclear etiology, possibly 2/2 ATN? -worsening Cr. Cr 3.0 today, 2.1 on admission -nephro following - pending serologies for vasculitis, HIV, hepatits -pending C3, C4, streptolysin Ab - pt clarifies that last NSAID dose was > 2 weeks ago. did get dose of ketorolac in ED -follow viral panel -c/w IVF - IR consulted ( Dr. Cyr ) for Bx LBP: - XR reviewed, CT abdomen/ Pelvis reviewed - L5-S1 disc degen and posterior spur formation, likely chronic finding -improving DVT ppx: hold Hep after midnight in case of procedure tomorrow Dispo: Med/ surg Visit type - Emergency Visit Emergency Visit: No - New Patient This patient is new to me today: Yes Date on this admission: 06/21/19 - Critical Care Critical Care patient: No - Discharge Referral Referred to [facility] Med P.C.: No ATTENDING PHYSICIAN STATEMENT I saw and evaluated the patient. I reviewed the resident's note and discussed the case with the resident. I agree with the resident's findings and plan as documented. SUBJECTIVE: OBJECTIVE: ASSESSMENT AND PLAN:
[2019-06-21] MEDS: FAMOTIDINE 20 MG TABLET PO SCH (17:03)
[2019-06-22 08:06] LABS: BASO % 0.7 % (0-2.0); EOS % 3.6 % (0-4.5); HEMATOCRIT 38.4 % (35.4-49); HEMOGLOBIN 13.2 GM/dL (11.7-16.9); LYMPH % 19.2 % (8-40); MCH 30.3 pg (25.7-33.7); MCHC 34.5 g/dl (32.0-35.9); MEAN CELL VOLUME 87.8 fl (80-96); MEAN PLT VOLUME 7.7 fl (7.5-11.1); MONO % 10.4 % (3.8-10.2); NEUT % 66.1 % (42.8-82.8); PLATELET COUNT 240 K/MM3 (134-434); RBC 4.38 M/mm3 (4.00-5.60); RDW 13.2 % (11.9-15.9); WHITE BLOOD COUNT 10.6 K/mm3 (4.0-10.0)
[2019-06-22 08:33] LABS: ALBUMIN 3.2 g/dl (3.4-5.0); BILIRUBIN,TOTAL 0.6 mg/dL (0.2-1); CREATININE 3.2 mg/dL (0.55-1.3); MAGNESIUM 1.9 mg/dL (1.8-2.4); PHOSPHOROUS 4.6 mg/dL (2.5-4.9); POTASSIUM 4.1 mmol/L (3.5-5.1); TOT PROT 6.3 g/dl (6.4-8.2)
[2019-06-22] MEDS: FAMOTIDINE 20 MG TABLET PO SCH (09:28)
--- NOTE | 2019-06-22 15:40 | PN ---
Progress Note, Physician History of Present Illness: Pt seen and examined at bedside. He is awake and alert. He denies shortness of breath. - Current Medication List Current Medications: Active Medications Acetaminophen (Tylenol -) 650 mg PO Q6H PRN PRN Reason: PAIN LEVEL 1 - 3 Last Admin: 06/20/19 17:41 Dose: 650 mg Famotidine (Pepcid -) 20 mg PO DAILY [facility] Last Admin: 06/22/19 09:28 Dose: 20 mg Sodium Chloride (1/2 Normal Saline) 1,000 mls @ 100 mls/hr IV ASDIR [facility] Last Admin: 06/21/19 21:59 Dose: 100 mls/hr Ondansetron HCl (Zofran Injection) 4 mg IVPB Q8H PRN PRN Reason: NAUSEA Last Admin: 06/20/19 18:52 Dose: 4 mg - Objective Vital Signs: Vital Signs Temperature 98.2 F 06/22/19 15:15 Pulse Rate 67 06/22/19 15:15 Respiratory Rate 06/22/19 15:15 Blood Pressure 147/82 06/22/19 15:15 O2 Sat by Pulse Oximetry (%) 100 06/22/19 14:23 Constitutional: Yes: Calm Eyes: Yes: Conjunctiva Clear HENT: Yes: Atraumatic Neck: Yes: Supple Cardiovascular: Yes: S1, S2 Respiratory: Yes: CTA Bilaterally Gastrointestinal: Yes: Soft Genitourinary: Yes: WNL Musculoskeletal: Yes: WNL Edema: No Integumentary: Yes: WNL Neurological: Yes: Oriented Psychiatric: Yes: Oriented Labs: CBC, BMP 06/22/19 06:30 06/22/19 06:30 INR, PTT INR 1.07 (0.83-1.09) 06/20/19 06:50 Problem List - Problems (1) Acute kidney injury Code(s): N17.9 - ACUTE KIDNEY FAILURE, UNSPECIFIED Assessment/Plan Current Medications Generic Name Dose Route Start Last Admin Trade Name Freq PRN Reason Stop Dose Admin Acetaminophen 650 mg 06/20/19 17:31 06/20/19 17:41 Tylenol - PO 650 mg Q6H PRN Administration PAIN LEVEL 1 - 3 Famotidine 20 mg 06/21/19 13:45 06/22/19 09:28 Pepcid - PO 20 mg DAILY [facility] Administration Sodium Chloride 1,000 mls @ 100 mls/hr 06/19/19 20:00 06/21/19 21:59 1/2 Normal Saline IV 100 mls/hr ASDIR [facility] Administration Ondansetron HCl 4 mg 06/20/19 18:04 06/20/19 18:52 Zofran Injection IVPB 4 mg Q8H PRN Administration NAUSEA Impression 1. YISEL 2. UTI/cystitis 3. sciatica 4. nsaid use 5. proteinuria with hematuria Plan - renal function continues to worsen - serologies pending - pt for kidney biopsy - avoid nsaids - repeat labs in am - cont fluids
--- NOTE | 2019-06-22 18:03 | PN ---
Teaching Attending Note Name of Resident: Dorina Jones ATTENDING PHYSICIAN STATEMENT I saw and evaluated the patient. I reviewed the resident's note and discussed the case with the resident. I agree with the resident's findings and plan as documented. SUBJECTIVE: seen at 11 am No fever or chills. no NA/V . back pain has almost resolved . OBJECTIVE: NAD, MMM. CV: RRR, no MRG Lungs: CTAB Abd: soft, NT, ND , NL BS. Ext : No edema or erythema or rash MS: very minimal TTP over lumbar paraspinal muscles on L side . Assessment/Plan: 29 y/o man with h/o back pain and sciatica who presented with flank pain and was found to have YISEL 1- YISEL : -d/w dr. melendrez - cont IVF - Bx today -follow serology - follow resp viral panel - throat cx neg 2- BAck pain: has sciatica .no signs of UTI - lumbar spine xray neg. back pain improved. 3- DVT PX: heparin sq
--- NOTE | 2019-06-22 18:44 | PN ---
Physical Exam: SUBJECTIVE: Patient seen and examined at bedside. pt states he is anxious about this new kidney problem. he states his back pain is improved but he still gets some shooting tingling down his legs that last a few minutes. OBJECTIVE: Vital Signs Period Temp Pulse Resp BP Sys/López Pulse Ox Last 24 Hr 98.0 F-99.1 F 57-76 14-20 136-153/80-96 97-100 GENERAL: The patient is awake, alert, and fully oriented, in no acute distress. HEAD: Normal with no signs of trauma. LUNGS: Breath sounds equal, clear to auscultation bilaterally, no wheezes, no crackles, no accessory muscle use. HEART: Regular rate and rhythm, S1, S2 without murmur, rub or gallop. ABDOMEN: Soft, nontender, nondistended, normoactive bowel sounds, no guarding, no rebound,no masses. EXTREMITIES: 2+ pulses, warm, well-perfused, no edema. NEUROLOGICAL: Cranial nerves II through XII grossly intact. Normal speech, gait not observed. PSYCH: Normal mood, normal affect. SKIN: Warm, dry, normal turgor, no rashes or lesions noted Laboratory Last Values WBC 10.6 K/mm3 (4.0-10.0) H 06/22/19 06:30 RBC 4.38 M/mm3 (4.00-5.60) 06/22/19 06:30 Hgb 13.2 GM/dL (11.7-16.9) 06/22/19 06:30 Hct 38.4 % (35.4-49) 06/22/19 06:30 MCV 87.8 fl (80-96) 06/22/19 06:30 MCH 30.3 pg (25.7-33.7) 06/22/19 06:30 MCHC 34.5 g/dl (32.0-35.9) 06/22/19 06:30 RDW 13.2 % (11.9-15.9) 06/22/19 06:30 Plt Count 240 K/MM3 (134-434) 06/22/19 06:30 MPV 7.7 fl (7.5-11.1) 06/22/19 06:30 Absolute Neuts (auto) 7.0 K/mm3 (1.5-8.0) 06/22/19 06:30 Neutrophils % 66.1 % (42.8-82.8) 06/22/19 06:30 Lymphocytes % 19.2 % (8-40) D 06/22/19 06:30 Monocytes % 10.4 % (3.8-10.2) H 06/22/19 06:30 Eosinophils % 3.6 % (0-4.5) 06/22/19 06:30 Basophils % 0.7 % (0-2.0) 06/22/19 06:30 Nucleated RBC % 0 % (0-0) 06/22/19 06:30 PT with INR 12.60 SEC (9.7-13.0) 06/20/19 06:50 INR 1.07 (0.83-1.09) 06/20/19 06:50 Sodium 143 mmol/L (136-145) 06/22/19 06:30 Potassium 4.1 mmol/L (3.5-5.1) 06/22/19 06:30 Chloride 110 mmol/L (98-107) H 06/22/19 06:30 Carbon Dioxide 27 mmol/L (21-32) 06/22/19 06:30 Anion Gap 5 MMOL/L (8-16) L 06/22/19 06:30 BUN 28.0 mg/dL (7-18) H 06/22/19 06:30 Creatinine 3.2 mg/dL (0.55-1.3) H 06/22/19 06:30 Est GFR (CKD-EPI)AfAm 28.36 06/22/19 06:30 Est GFR (CKD-EPI)NonAf 24.47 06/22/19 06:30 Random Glucose 83 mg/dL (74-106) 06/22/19 06:30 Hemoglobin A1c % 5.1 % (4.2-6.3) 06/19/19 20:05 Calcium 9.0 mg/dL (8.5-10.1) 06/22/19 06:30 Phosphorus 4.6 mg/dL (2.5-4.9) 06/22/19 06:30 Magnesium 1.9 mg/dL (1.8-2.4) 06/22/19 06:30 Total Bilirubin 0.6 mg/dL (0.2-1) 06/22/19 06:30 AST 17 U/L (15-37) 06/22/19 06:30 ALT 31 U/L (13-61) 06/22/19 06:30 Alkaline Phosphatase 121 U/L (45-117) H 06/22/19 06:30 Creatine Kinase 97 U/L (26-308) 06/20/19 06:50 Total Protein 6.3 g/dl (6.4-8.2) L 06/22/19 06:30 Albumin 3.2 g/dl (3.4-5.0) L 06/22/19 06:30 Lipase 104 U/L (73-393) 06/19/19 12:35 TSH 0.49 uIU/ml (0.358-3.74) 06/19/19 20:05 Urine Color Yellow 06/21/19 08:30 Urine Appearance Clear 06/21/19 08:30 Urine pH 6.5 (5.0-8.0) 06/21/19 08:30 Ur Specific [place] 1.006 (1.010-1.035) L 06/21/19 08:30 Urine Protein Negative (NEGATIVE) 06/21/19 08:30 Urine Glucose (UA) Negative (NEGATIVE) 06/21/19 08:30 Urine Ketones Negative (NEGATIVE) 06/21/19 08:30 Urine Blood Trace (NEGATIVE) 06/21/19 08:30 Urine Nitrite Negative (NEGATIVE) 06/21/19 08:30 Urine Bilirubin Negative (NEGATIVE) 06/21/19 08:30 Urine Urobilinogen 0.2 mg/dL (0.2-1.0) 06/21/19 08:30 Ur Leukocyte Esterase Negative (NEGATIVE) 06/21/19 08:30 Urine WBC (Auto) 1 /hpf (0-5) 06/21/19 08:30 Urine RBC (Auto) 4 /hpf (0-4) 06/21/19 08:30 Urine Casts (Auto) 1 /lpf (0-8) 06/21/19 08:30 U Epithel Cells (Auto) 0.4 /HPF (0-5/HPF) 06/21/19 08:30 Urine Bacteria (Auto) 6.4 /hpf (NEGATIVE) 06/21/19 08:30 Ur Random Creatinine 109.0 mg/dL (30-150) 06/19/19 20:15 U Random Total Protein 60.2 mg/dL (0-11.9) H 06/19/19 20:15 Ur Random Sodium 60 MMOL/L (40-220) 06/21/19 08:30 Ur Random Potassium < 9.0 MMOL/L (25-125) L 06/21/19 08:30 Ur Random Chloride 56 MMOL/L (110-250) L 06/21/19 08:30 Urine Creatinine 109.0 mg/dL (30-150) 06/19/19 20:15 Protein/Creatinin Ratio 0.6 mg/dL 06/19/19 20:15 Double Strand DNA Ab <1 IU/mL (0-9) 06/21/19 09:15 HIV 1&2 Ag/Ab, 4th Gen Non reactive (Non Reactive) 06/19/19 21:00 HIV 1&2 Antibody Screen Cancelled 06/19/19 20:05 HIV P24 Antigen Cancelled 06/19/19 20:05 Influenza A (Rapid) Negative (Negative) 06/19/19 20:17 Influenza B (Rapid) Negative (Negative) 06/19/19 20:17 Group A Strep Rapid Negative (Negative) 06/20/19 13:42 Current Medications Acetaminophen (Tylenol -) 650 mg PO Q6H PRN PRN Reason: PAIN LEVEL 1 - 3 Last Admin: 06/20/19 17:41 Dose: 650 mg Famotidine (Pepcid -) 20 mg PO DAILY [facility] Last Admin: 06/22/19 09:28 Dose: 20 mg Sodium Chloride (1/2 Normal Saline) 1,000 mls @ 100 mls/hr IV ASDIR [facility] Last Admin: 06/21/19 21:59 Dose: 100 mls/hr Ondansetron HCl (Zofran Injection) 4 mg IVPB Q8H PRN PRN Reason: NAUSEA Last Admin: 06/20/19 18:52 Dose: 4 mg ASSESSMENT/PLAN: 29 yo M PMH of Sciatica presented to [facility] for LBP and found to be in acute renal failure Acute Renal failure: unclear etiology, possibly 2/2 ATN? -worsening Cr. Cr 3.2 today, 2.1 on admission -nephro following, Dr. Feliz - pending serologies for vasculitis, HIV, hepatits -pending C3, C4, streptolysin Ab - pt clarifies that last NSAID dose was > 2 weeks ago. did get dose of ketorolac in ED -follow viral panel -c/w IVF - IR guided renal biopsy done today by Dr. Cyr. will monitor H/H. will check XR in a LBP: - XR reviewed, CT abdomen/ Pelvis reviewed - L5-S1 disc degen and posterior spur formation, likely chronic finding DVT ppx: heparin Dispo: Med/ surg Visit type - Emergency Visit Emergency Visit: No - New Patient This patient is new to me today: No - Critical Care Critical Care patient: No - Discharge Referral Referred to [facility] Med P.C.: No ATTENDING PHYSICIAN STATEMENT I saw and evaluated the patient. I reviewed the resident's note and discussed the case with the resident. I agree with the resident's findings and plan as documented. SUBJECTIVE: OBJECTIVE: ASSESSMENT AND PLAN:
[2019-06-22 19:13] LABS: HEP B CORE AB, TOT Negative (Negative)
[2019-06-22] MEDS: SODIUM CHLORIDE 0.45% 1,000 ML IV SCH (20:45)
[2019-06-22 21:48] LABS: HEMATOCRIT 39.1 % (35.4-49); HEMOGLOBIN 13.2 GM/dL (11.7-16.9); MCH 29.8 pg (25.7-33.7); MCHC 33.8 g/dl (32.0-35.9); MEAN PLT VOLUME 7.5 fl (7.5-11.1); PLATELET COUNT 258 K/MM3 (134-434); RBC 4.44 M/mm3 (4.00-5.60); RDW 13.2 % (11.9-15.9); WHITE BLOOD COUNT 9.7 K/mm3 (4.0-10.0)
[2019-06-23] MEDS: ACETAMINOPHEN 325 MG TABLET (FP) PO PRN (02:04)
[2019-06-23 08:36] LABS: HEMATOCRIT 38.3 % (35.4-49); HEMOGLOBIN 13.3 GM/dL (11.7-16.9); MCH 30.5 pg (25.7-33.7); MCHC 34.8 g/dl (32.0-35.9); MEAN CELL VOLUME 87.5 fl (80-96); MEAN PLT VOLUME 7.7 fl (7.5-11.1); PLATELET COUNT 249 K/MM3 (134-434); RBC 4.37 M/mm3 (4.00-5.60)
[2019-06-23 08:56] LABS: ALBUMIN 3.2 g/dl (3.4-5.0); BILIRUBIN,TOTAL 0.7 mg/dL (0.2-1); BLOOD UREA NITROGEN 27.9 mg/dL (7-18); CALCIUM 8.7 mg/dL (8.5-10.1); CREATININE 2.9 mg/dL (0.55-1.3); MAGNESIUM 2.1 mg/dL (1.8-2.4); PHOSPHOROUS 4.7 mg/dL (2.5-4.9); POTASSIUM 4.2 mmol/L (3.5-5.1); TOT PROT 6.4 g/dl (6.4-8.2)
--- NOTE | 2019-06-23 09:23 | PN ---
Teaching Attending Note Name of Resident: Dorina Jones ATTENDING PHYSICIAN STATEMENT I saw and evaluated the patient. I reviewed the resident's note and discussed the case with the resident. I agree with the resident's findings and plan as documented. SUBJECTIVE: Patient is improving with no acute distress. OBJECTIVE: Vital Signs Temperature 97.9 F 06/23/19 06:29 Pulse Rate 20 L 06/23/19 06:29 Respiratory Rate 20 06/23/19 06:29 Blood Pressure 120/68 06/23/19 06:29 O2 Sat by Pulse Oximetry (%) 100 06/22/19 14:23 GENERAL: The patient is awake, alert, and fully oriented, in no acute distress. HEAD: Normal with no signs of trauma. EYES: PERRL, extraocular movements intact, sclera anicteric, conjunctiva clear. ENT: Ears normal, oropharynx clear without exudates, moist mucous membranes. NECK: Trachea midline, full range of motion, supple. LUNGS: Breath sounds equal, clear to auscultation bilaterally, no wheezes, no crackles, no accessory muscle use. HEART: Regular rate and rhythm, S1, S2 without murmur, rub or gallop. ABDOMEN: Soft, NT,ND, +BS , no guarding, no rebound, no hepatosplenomegaly, no masses. EXTREMITIES: 2+ pulses, warm, well-perfused, no edema. NEUROLOGICAL: Cranial nerves II through XII grossly intact. Normal speech, gait not observed. PSYCH: Normal mood, normal affect. SKIN: Warm, dry, normal turgor, no rashes or lesions noted CBCD WBC 9.0 K/mm3 (4.0-10.0) 06/23/19 07:15 RBC 4.37 M/mm3 (4.00-5.60) 06/23/19 07:15 Hgb 13.3 GM/dL (11.7-16.9) 06/23/19 07:15 Hct 38.3 % (35.4-49) 06/23/19 07:15 MCV 87.5 fl (80-96) 06/23/19 07:15 MCHC 34.8 g/dl (32.0-35.9) 06/23/19 07:15 RDW 13.0 % (11.9-15.9) 06/23/19 07:15 Plt Count 249 K/MM3 (134-434) 06/23/19 07:15 MPV 7.7 fl (7.5-11.1) 06/23/19 07:15 CMP Sodium 142 mmol/L (136-145) 06/23/19 07:15 Potassium 4.2 mmol/L (3.5-5.1) 06/23/19 07:15 Chloride 109 mmol/L (98-107) H 06/23/19 07:15 Carbon Dioxide 27 mmol/L (21-32) 06/23/19 07:15 Anion Gap 6 MMOL/L (8-16) L 06/23/19 07:15 BUN 27.9 mg/dL (7-18) H 06/23/19 07:15 Creatinine 2.9 mg/dL (0.55-1.3) H 06/23/19 07:15 Random Glucose 80 mg/dL (74-106) 06/23/19 07:15 Calcium 8.7 mg/dL (8.5-10.1) 06/23/19 07:15 Total Bilirubin 0.7 mg/dL (0.2-1) 06/23/19 07:15 AST 44 U/L (15-37) H 06/23/19 07:15 ALT 63 U/L (13-61) H 06/23/19 07:15 Alkaline Phosphatase 125 U/L (45-117) H 06/23/19 07:15 Total Protein 6.4 g/dl (6.4-8.2) 06/23/19 07:15 Albumin 3.2 g/dl (3.4-5.0) L 06/23/19 07:15 CARDIAC ENZYMES Creatine Kinase 97 U/L (26-308) 06/20/19 06:50 Current Medications Generic Name Dose Route Start Last Admin Trade Name Freq PRN Reason Stop Dose Admin Acetaminophen 650 mg 06/20/19 17:31 06/23/19 02:04 Tylenol - PO 650 mg Q6H PRN Administration PAIN LEVEL 1 - 3 Famotidine 20 mg 06/21/19 13:45 06/22/19 09:28 Pepcid - PO 20 mg DAILY [facility] Administration Sodium Chloride 1,000 mls @ 100 mls/hr 06/19/19 20:00 06/22/19 20:45 1/2 Normal Saline IV 100 mls/hr ASDIR [facility] Administration Ondansetron HCl 4 mg 06/20/19 18:04 06/20/19 18:52 Zofran Injection IVPB 4 mg Q8H PRN Administration NAUSEA Home Medications Medication Instructions Recorded NK [No Known Home Medication] 06/19/19 Microbiology 06/19/19 20:05 Blood - Peripheral Venous Blood Culture - Preliminary NO GROWTH OBTAINED AFTER 72 HOURS, INCUBATION TO CONTINUE FOR 2 DAYS. 06/19/19 20:05 Blood - Peripheral Venous Blood Culture - Preliminary NO GROWTH OBTAINED AFTER 72 HOURS, INCUBATION TO CONTINUE FOR 2 DAYS. 06/20/19 13:52 Throat Throat Culture - Final NO BETA HEMOLYTIC STREPTOCOCCI ISOLATED 06/19/19 12:45 Urine - Urine Clean Catch Urine Culture - Final NO GROWTH OBTAINED ASSESSMENT AND PLAN: Patient is a 29yom with Pmhx of back pain who presented with flank pain and was found to have YISEL # YISEL : as per patient he was taking Nsaid due to having back pain , s/p renal bx pending the prelim read. d/w with dr. parvin STAPLETON ; follow serology and bx result. # BAck pain: has sciatica .no signs of UTI ; lumbar spine xray neg. back pain improved. DVT PX: heparin sq
[2019-06-23] MEDS: FAMOTIDINE 20 MG TABLET PO SCH (10:01)
[2019-06-23 11:07] LABS: ANTIGLOMERULAR BASEMENT MEN.AB 3 units (0-20)
[2019-06-23] MEDS ORDERED: PT OWN MED DRAWER 7, Y5N ONE (12:27)
--- NOTE | 2019-06-23 16:12 | PN ---
Progress Note, Physician History of Present Illness: Pt seen and examined at bedside. He is awake and alert. He denies shortness of breath. - Current Medication List Current Medications: Active Medications Acetaminophen (Tylenol -) 650 mg PO Q6H PRN PRN Reason: PAIN LEVEL 1 - 3 Last Admin: 06/23/19 02:04 Dose: 650 mg Famotidine (Pepcid -) 20 mg PO DAILY [facility] Last Admin: 06/23/19 10:01 Dose: 20 mg Sodium Chloride (1/2 Normal Saline) 1,000 mls @ 100 mls/hr IV ASDIR [facility] Last Admin: 06/22/19 20:45 Dose: 100 mls/hr Ondansetron HCl (Zofran Injection) 4 mg IVPB Q8H PRN PRN Reason: NAUSEA Last Admin: 06/20/19 18:52 Dose: 4 mg - Objective Vital Signs: Vital Signs Temperature 98.3 F 06/23/19 14:00 Pulse Rate 55 L 06/23/19 14:00 Respiratory Rate 06/23/19 14:00 Blood Pressure 141/78 06/23/19 14:00 O2 Sat by Pulse Oximetry (%) 100 06/23/19 09:00 Constitutional: Yes: Calm Eyes: Yes: Conjunctiva Clear HENT: Yes: Atraumatic Neck: Yes: Supple Cardiovascular: Yes: S1, S2 Respiratory: Yes: CTA Bilaterally Gastrointestinal: Yes: Normal Bowel Sounds, Soft Genitourinary: Yes: WNL Musculoskeletal: Yes: WNL Edema: No Integumentary: Yes: Tattoos Neurological: Yes: Oriented Psychiatric: Yes: Oriented Labs: CBC, BMP 06/23/19 07:15 06/23/19 07:15 INR, PTT INR 1.07 (0.83-1.09) 06/20/19 06:50 Problem List - Problems (1) Acute kidney injury Code(s): N17.9 - ACUTE KIDNEY FAILURE, UNSPECIFIED Assessment/Plan Current Medications Generic Name Dose Route Start Last Admin Trade Name Freq PRN Reason Stop Dose Admin Acetaminophen 650 mg 06/20/19 17:31 06/23/19 02:04 Tylenol - PO 650 mg Q6H PRN Administration PAIN LEVEL 1 - 3 Famotidine 20 mg 06/21/19 13:45 06/23/19 10:01 Pepcid - PO 20 mg DAILY [facility] Administration Sodium Chloride 1,000 mls @ 100 mls/hr 06/19/19 20:00 06/22/19 20:45 1/2 Normal Saline IV 100 mls/hr ASDIR [facility] Administration Ondansetron HCl 4 mg 06/20/19 18:04 06/20/19 18:52 Zofran Injection IVPB 4 mg Q8H PRN Administration NAUSEA Laboratory Tests 06/21/19 06/21/19 06/23/19 08:30 09:15 07:15 Urine Protein Negative Urine Blood Trace JANEE Screen Negative c-ANCA Pending Proteinase 3 (PR3) Pending p-ANCA Pending Atypical p-ANCA Pending Myeloperoxidase Ab Pending Double Strand DNA Ab <1 Glomerular Base Memb Ab 3 Complement C3 Pending Complement C4 Pending Impression 1. YISEL 2. UTI/cystitis 3. sciatica 4. nsaid use 5. proteinuria with hematuria Plan - follow serologies - renal function improving - ua improving - biopsy pending, hopefully I can get the prelim by tomorrow - follow serologies, results negative so far - cont fluids
[2019-06-23] MEDS: SODIUM CHLORIDE 0.45% 1,000 ML IV SCH (16:45)
--- NOTE | 2019-06-23 16:52 | PN ---
Physical Exam: SUBJECTIVE: Patient seen and examined at bedside. pt has no acute complaints. pt states his pain is improved. OBJECTIVE: Vital Signs Period Temp Pulse Resp BP Sys/López Pulse Ox Last 24 Hr 97.9 F-98.3 F - 20- 120-151/68-96 100 GENERAL: The patient is awake, alert, and fully oriented, in no acute distress. HEAD: Normal with no signs of trauma. LUNGS: Breath sounds equal, clear to auscultation bilaterally, no wheezes, no crackles, no accessory muscle use. HEART: Regular rate and rhythm, S1, S2 without murmur, rub or gallop. ABDOMEN: Soft, nontender, nondistended, normoactive bowel sounds, no guarding, no rebound EXTREMITIES: 2+ pulses, warm, well-perfused, no edema. NEUROLOGICAL: Cranial nerves II through XII grossly intact. Normal speech, gait not observed. PSYCH: Normal mood, normal affect. SKIN: Warm, dry, normal turgor, no rashes or lesions noted Laboratory Last Values WBC 9.0 K/mm3 (4.0-10.0) 06/23/19 07:15 RBC 4.37 M/mm3 (4.00-5.60) 06/23/19 07:15 Hgb 13.3 GM/dL (11.7-16.9) 06/23/19 07:15 Hct 38.3 % (35.4-49) 06/23/19 07:15 MCV 87.5 fl (80-96) 06/23/19 07:15 MCH 30.5 pg (25.7-33.7) 06/23/19 07:15 MCHC 34.8 g/dl (32.0-35.9) 06/23/19 07:15 RDW 13.0 % (11.9-15.9) 06/23/19 07:15 Plt Count 249 K/MM3 (134-434) 06/23/19 07:15 MPV 7.7 fl (7.5-11.1) 06/23/19 07:15 Absolute Neuts (auto) 7.0 K/mm3 (1.5-8.0) 06/22/19 06:30 Neutrophils % 66.1 % (42.8-82.8) 06/22/19 06:30 Lymphocytes % 19.2 % (8-40) D 06/22/19 06:30 Monocytes % 10.4 % (3.8-10.2) H 06/22/19 06:30 Eosinophils % 3.6 % (0-4.5) 06/22/19 06:30 Basophils % 0.7 % (0-2.0) 06/22/19 06:30 Nucleated RBC % 0 % (0-0) 06/22/19 06:30 PT with INR 12.60 SEC (9.7-13.0) 06/20/19 06:50 INR 1.07 (0.83-1.09) 06/20/19 06:50 Sodium 142 mmol/L (136-145) 06/23/19 07:15 Potassium 4.2 mmol/L (3.5-5.1) 06/23/19 07:15 Chloride 109 mmol/L (98-107) H 06/23/19 07:15 Carbon Dioxide 27 mmol/L (21-32) 06/23/19 07:15 Anion Gap 6 MMOL/L (8-16) L 06/23/19 07:15 BUN 27.9 mg/dL (7-18) H 06/23/19 07:15 Creatinine 2.9 mg/dL (0.55-1.3) H 06/23/19 07:15 Est GFR (CKD-EPI)AfAm 31.94 06/23/19 07:15 Est GFR (CKD-EPI)NonAf 27.56 06/23/19 07:15 Random Glucose 80 mg/dL (74-106) 06/23/19 07:15 Hemoglobin A1c % 5.1 % (4.2-6.3) 06/19/19 20:05 Calcium 8.7 mg/dL (8.5-10.1) 06/23/19 07:15 Phosphorus 4.7 mg/dL (2.5-4.9) 06/23/19 07:15 Magnesium 2.1 mg/dL (1.8-2.4) 06/23/19 07:15 Total Bilirubin 0.7 mg/dL (0.2-1) 06/23/19 07:15 AST 44 U/L (15-37) H 06/23/19 07:15 ALT 63 U/L (13-61) H 06/23/19 07:15 Alkaline Phosphatase 125 U/L (45-117) H 06/23/19 07:15 Creatine Kinase 97 U/L (26-308) 06/20/19 06:50 Total Protein 6.4 g/dl (6.4-8.2) 06/23/19 07:15 Albumin 3.2 g/dl (3.4-5.0) L 06/23/19 07:15 Lipase 104 U/L (73-393) 06/19/19 12:35 TSH 0.49 uIU/ml (0.358-3.74) 06/19/19 20:05 Urine Color Yellow 06/21/19 08:30 Urine Appearance Clear 06/21/19 08:30 Urine pH 6.5 (5.0-8.0) 06/21/19 08:30 Ur Specific [place] 1.006 (1.010-1.035) L 06/21/19 08:30 Urine Protein Negative (NEGATIVE) 06/21/19 08:30 Urine Glucose (UA) Negative (NEGATIVE) 06/21/19 08:30 Urine Ketones Negative (NEGATIVE) 06/21/19 08:30 Urine Blood Trace (NEGATIVE) 06/21/19 08:30 Urine Nitrite Negative (NEGATIVE) 06/21/19 08:30 Urine Bilirubin Negative (NEGATIVE) 06/21/19 08:30 Urine Urobilinogen 0.2 mg/dL (0.2-1.0) 06/21/19 08:30 Ur Leukocyte Esterase Negative (NEGATIVE) 06/21/19 08:30 Urine WBC (Auto) 1 /hpf (0-5) 06/21/19 08:30 Urine RBC (Auto) 4 /hpf (0-4) 06/21/19 08:30 Urine Casts (Auto) 1 /lpf (0-8) 06/21/19 08:30 U Epithel Cells (Auto) 0.4 /HPF (0-5/HPF) 06/21/19 08:30 Urine Bacteria (Auto) 6.4 /hpf (NEGATIVE) 06/21/19 08:30 Urine Eosinophils None seen % (.) 06/19/19 20:15 Ur Random Creatinine 109.0 mg/dL (30-150) 06/19/19 20:15 U Random Total Protein 60.2 mg/dL (0-11.9) H 06/19/19 20:15 Ur Random Sodium 60 MMOL/L (40-220) 06/21/19 08:30 Ur Random Potassium < 9.0 MMOL/L (25-125) L 06/21/19 08:30 Ur Random Chloride 56 MMOL/L (110-250) L 06/21/19 08:30 Urine Creatinine 109.0 mg/dL (30-150) 06/19/19 20:15 Protein/Creatinin Ratio 0.6 mg/dL 06/19/19 20:15 JANEE Screen Negative (.) 06/21/19 09:15 Double Strand DNA Ab <1 IU/mL (0-9) 06/21/19 09:15 Glomerular Base Memb Ab 3 units (0-20) 06/21/19 09:15 C. trachomatis (JOSIAH) Negative (Negative) 06/19/19 12:45 Hep A IgM Ab Confirm Negative (Negative) 06/21/19 09:15 Hepatitis A Ab Total Positive (Negative) H 06/21/19 09:15 Hep Bs Antigen Negative (Negative) 06/21/19 09:15 Hep Bs Antibody Non reactive (.) 06/21/19 09:15 Hep B Core Total Ab Negative (Negative) 06/21/19 09:15 Hep B Core IgM Ab Negative (Negative) 06/21/19 09:15 Hepatitis Be Antibody Negative (Negative) 06/21/19 09:15 Hepatitis Be Antigen Negative (Negative) 06/21/19 09:15 HCV Quantitation Hcv not detected IU/mL (.) 06/21/19 09:15 HCV RNA log copies/mL TNP 06/21/19 09:15 HIV 1&2 Ag/Ab, 4th Gen Non reactive (Non Reactive) 06/19/19 21:00 HIV 1&2 Antibody Screen Cancelled 06/19/19 20:05 HIV P24 Antigen Cancelled 06/19/19 20:05 Influenza A (Rapid) Negative (Negative) 06/19/19 20:17 Influenza B (Rapid) Negative (Negative) 06/19/19 20:17 N. gonorrhoeae (JOSIAH) Negative (Negative) 06/19/19 12:45 Group A Strep Rapid Negative (Negative) 06/20/19 13:42 Current Medications Acetaminophen (Tylenol -) 650 mg PO Q6H PRN PRN Reason: PAIN LEVEL 1 - 3 Last Admin: 06/23/19 02:04 Dose: 650 mg Famotidine (Pepcid -) 20 mg PO DAILY [facility] Last Admin: 06/23/19 10:01 Dose: 20 mg Sodium Chloride (1/2 Normal Saline) 1,000 mls @ 100 mls/hr IV ASDIR [facility] Last Admin: 06/23/19 16:45 Dose: 100 mls/hr Ondansetron HCl (Zofran Injection) 4 mg IVPB Q8H PRN PRN Reason: NAUSEA Last Admin: 06/20/19 18:52 Dose: 4 mg ASSESSMENT/PLAN: 29 yo M PMH of Sciatica presented to [facility] for LBP and found to be in acute renal failure Acute Renal failure: unclear etiology, possibly 2/2 ATN? -Cr plateau and improved today 2.9 , Cr 3.2 yesterday and 2.1 on admission -nephro following, Dr. Feliz - pending serologies, so far negative -pending C3, C4, streptolysin Ab - pt clarifies that last NSAID dose was > 2 weeks ago. did get dose of ketorolac in ED -pending bx results -follow viral panel, so far negative -c/w IVF - IR guided renal biopsy done yesterday, by Dr. Cyr. H/H remained stable LBP: - XR reviewed, CT abdomen/ Pelvis reviewed - L5-S1 disc degen and posterior spur formation, likely chronic finding DVT ppx: heparin Dispo: Med/ surg , possible DC tomorrow Visit type - Emergency Visit Emergency Visit: No - New Patient This patient is new to me today: No - Critical Care Critical Care patient: No - Discharge Referral Referred to [facility] Med P.C.: No ATTENDING PHYSICIAN STATEMENT I saw and evaluated the patient. I reviewed the resident's note and discussed the case with the resident. I agree with the resident's findings and plan as documented. SUBJECTIVE: OBJECTIVE: ASSESSMENT AND PLAN:
[2019-06-23 17:07] LABS: ATYPICAL pANCA <1:20 titer (Neg:<1:20); C-ANCA <1:20 titer (Neg:<1:20)
[2019-06-24 08:06] LABS: ASLO SCREEN 34.5 IU/mL (0.0-200.0)
[2019-06-24 08:49] LABS: ALBUMIN 3.4 g/dl (3.4-5.0); BILIRUBIN,TOTAL 0.5 mg/dL (0.2-1); BLOOD UREA NITROGEN 28.4 mg/dL (7-18); CALCIUM 9.3 mg/dL (8.5-10.1); CREATININE 2.4 mg/dL (0.55-1.3); POTASSIUM 4.1 mmol/L (3.5-5.1); TOT PROT 6.7 g/dl (6.4-8.2)
[2019-06-24] MEDS: FAMOTIDINE 20 MG TABLET PO SCH (09:08)
[2019-06-24] MEDS: SODIUM CHLORIDE 0.45% 1,000 ML IV SCH (10:51)
[2019-06-24 11:16] VITALS: BP 131/82; PULSE 69; TEMP 98.2
--- NOTE | 2019-06-24 13:11 | PN ---
Progress Note, Physician History of Present Illness: Pt seen and examined at bedside. He is awake and alert. He denies shortness of breath. - Objective Vital Signs: Vital Signs Temperature 98.2 F 06/24/19 10:00 Pulse Rate 69 06/24/19 10:00 Respiratory Rate 18 06/24/19 10:00 Blood Pressure 131/82 06/24/19 10:00 O2 Sat by Pulse Oximetry (%) 100 06/23/19 09:00 Constitutional: Yes: Calm Eyes: Yes: Conjunctiva Clear HENT: Yes: Atraumatic Neck: Yes: Supple Cardiovascular: Yes: S1, S2 Respiratory: Yes: CTA Bilaterally Gastrointestinal: Yes: Soft Genitourinary: Yes: WNL Musculoskeletal: Yes: WNL Edema: No Integumentary: Yes: WNL Neurological: Yes: Oriented Psychiatric: Yes: Oriented Labs: CBC, BMP 06/23/19 07:15 06/24/19 07:15 INR, PTT INR 1.07 (0.83-1.09) 06/20/19 06:50 Problem List - Problems (1) Acute kidney injury Code(s): N17.9 - ACUTE KIDNEY FAILURE, UNSPECIFIED Assessment/Plan Laboratory Tests 06/21/19 06/23/19 09:15 07:15 JANEE Screen Negative c-ANCA <1:20 Proteinase 3 (PR3) <3.5 p-ANCA <1:20 Atypical p-ANCA <1:20 Myeloperoxidase Ab <9.0 Double Strand DNA Ab <1 Glomerular Base Memb Ab 3 Complement C3 132 Complement C4 30 Impression 1. YISEL 2. UTI/cystitis 3. sciatica 4. nsaid use 5. proteinuria with hematuria Plan - serologies negative so far - spoke to pathology in [place], biopsy shows ATN - will see pt in office next week - avoid nsaids - discussed with medical team
--- NOTE | 2019-06-24 15:22 | DS ---
Physical Exam: SUBJECTIVE: Patient seen and examined at bedside. pt has no acute complaints OBJECTIVE: Vital Signs Period Temp Pulse Resp BP Sys/López Pulse Ox Last 24 Hr 98.2 F-98.6 F 54-73 18-20 108-146/74-93 PHYSICAL EXAM GENERAL: The patient is awake, alert, and fully oriented, in no acute distress. LUNGS: Breath sounds equal, clear to auscultation bilaterally, no wheezes, no crackles, no accessory muscle use. HEART: Regular rate and rhythm, S1, S2 without murmur, rub or gallop. ABDOMEN: Soft, nontender, nondistended, normoactive bowel sounds, no guarding, no rebound, no hepatosplenomegaly, no masses. EXTREMITIES: 2+ pulses, warm, well-perfused, no edema. NEUROLOGICAL: Cranial nerves II through XII grossly intact. Normal speech, gait not observed. PSYCH: Normal mood, normal affect. SKIN: Warm, dry, normal turgor, no rashes or lesions noted. LABS Laboratory Results - last 24 hr 06/21/19 06/22/19 06/23/19 09:15 15:45 07:15 Sodium Potassium Chloride Carbon Dioxide Anion Gap BUN Creatinine Est GFR (CKD-EPI)AfAm Est GFR (CKD-EPI)NonAf Random Glucose Calcium Total Bilirubin AST ALT Alkaline Phosphatase Total Protein Albumin c-ANCA <1:20 Proteinase 3 (PR3) <3.5 p-ANCA <1:20 Atypical p-ANCA <1:20 Myeloperoxidase Ab <9.0 Complement C3 132 Complement C4 30 Anti-Streptolysin Scrn 37.1 34.5 06/24/19 07:15 Sodium 141 Potassium 4.1 Chloride 107 Carbon Dioxide 26 Anion Gap 9 BUN 28.4 H Creatinine 2.4 H Est GFR (CKD-EPI)AfAm 40.15 Est GFR (CKD-EPI)NonAf 34.65 Random Glucose 89 Calcium 9.3 Total Bilirubin 0.5 AST 75 H ALT 117 H Alkaline Phosphatase 128 H Total Protein 6.7 Albumin 3.4 c-ANCA Proteinase 3 (PR3) p-ANCA Atypical p-ANCA Myeloperoxidase Ab Complement C3 Complement C4 Anti-Streptolysin Scrn HOSPITAL COURSE: Date of Admission:06/19/19 29 yo M PMH of Sciatica presented to [facility] for LBP and found to be in acute renal failure. pt admitted for acute renal failure. Dr. Feliz was closely involved in case. pt had serologies and viral panels sent which were negative. C3, C4 was neg. pt had renal bx showing ATN . pt advised to avoid nsaids, alcohol, drugs. pts Cr peaked and began downtrending. pt's lab also shows increasing LFTs . pt should f/u with PMD, Nephrology, GI. XR and CT for eval of LBP shows L5-S1 disc degen and posterior spur formation likely chronic finding. Date of Discharge: 06/24/19 Minutes to complete discharge: 36 Discharge Summary Problems reviewed: Yes Reason For Visit: ACUTE KIDNEY INJURY Condition: Improved - Instructions Diet, Activity, Other Instructions: YOUR VISIT. You came to the hospital because you were having back pain. You were admitted to the hospital for a new kidney injury. We did many blood tests and imaging to help determine the cause of this kidney problem. We also did a biopsy of your kidney. So far your test results are negative. While you were in the hospital, your liver numbers were slightly elevated. we would like you to see your physician and textile supervisor to continue to evaluate this. While here you were seen by the medicine physicians and by the site coordinator. You are now stable and may return home. Your kidney number is returning to normal. MEDICATIONS. Please avoid taking any medications. Please avoid drinking alcohol. Please avoid any drug use. Please do not take any NSAIDs as they are harmful for your kidney. ADDITIONAL CARE. Please make an appointment to see your primary care provider 1 week from today. Please have a Comprehensive Metabolic Panel drawn at that time. Please make an appointment with Dr. Feliz, your nephroloist within 1 week to assess your kidney function. Please make an appointment with Dr. Romano, a textile supervisor in one week to assess your liver. ADDITIONAL INFORMATION. Please call 911 or come directly to the emergency department if you experience unusual headache, vision change, shortness of breath, chest pain, numbness, tingling, loss of alertness/awareness, loss of function, unusual bleeding or any alarming symptoms. Referrals: [facility] [Provider Group] Evan Romano DO [Staff Physician] - Renetta Sultana MD [Staff Physician] - Angelo Feliz MD [Staff Physician] - 1 Week Disposition: HOME - Home Medications Comprehensive Discharge Medication List: Ambulatory Orders NK [No Known Home Medication] 06/19/19 This patient is new to me today: No Emergency Visit: No Critical Care patient: No - Discharge Referral [facility]erred to [facility] Med P.C.: No ATTENDING PHYSICIAN STATEMENT I saw and evaluated the patient. I reviewed the resident's note and discussed the case with the resident. I agree with the resident's findings and plan as documented. SUBJECTIVE: OBJECTIVE: ASSESSMENT AND PLAN:
--- NOTE | 2019-06-24 17:23 | PN ---
Teaching Attending Note Name of Resident: Dorina Jones ATTENDING PHYSICIAN STATEMENT I saw and evaluated the patient. I reviewed the resident's note and discussed the case with the resident. I agree with the resident's findings and plan as documented. SUBJECTIVE: Patient is comfortable with nata cute distress. OBJECTIVE: Vital Signs Temperature 98.2 F 06/24/19 10:00 Pulse Rate 69 06/24/19 10:00 Respiratory Rate 18 06/24/19 10:00 Blood Pressure 131/82 06/24/19 10:00 O2 Sat by Pulse Oximetry (%) 100 06/23/19 09:00 GENERAL: The patient is awake, alert, and fully oriented, in no acute distress. HEAD: Normal with no signs of trauma. EYES: PERRL, extraocular movements intact, sclera anicteric, conjunctiva clear. ENT: Ears normal, oropharynx clear without exudates, moist mucous membranes. NECK: Trachea midline, full range of motion, supple. LUNGS: Breath sounds equal, clear to auscultation bilaterally, no wheezes, no crackles, no accessory muscle use. HEART: Regular rate and rhythm, S1, S2 without murmur, rub or gallop. ABDOMEN: Soft, NT, ND, +BS , no guarding, no rebound, no hepatosplenomegaly, no masses. EXTREMITIES: 2+ pulses, warm, well-perfused, no edema. NEUROLOGICAL: Cranial nerves II through XII grossly intact. Normal speech, gait not observed. PSYCH: Normal mood, normal affect. SKIN: Warm, dry, normal turgor, no rashes or lesions noted CBCD WBC 9.0 K/mm3 (4.0-10.0) 06/23/19 07:15 RBC 4.37 M/mm3 (4.00-5.60) 06/23/19 07:15 Hgb 13.3 GM/dL (11.7-16.9) 06/23/19 07:15 Hct 38.3 % (35.4-49) 06/23/19 07:15 MCV 87.5 fl (80-96) 06/23/19 07:15 MCHC 34.8 g/dl (32.0-35.9) 06/23/19 07:15 RDW 13.0 % (11.9-15.9) 06/23/19 07:15 Plt Count 249 K/MM3 (134-434) 06/23/19 07:15 MPV 7.7 fl (7.5-11.1) 06/23/19 07:15 CMP Sodium 142 mmol/L (136-145) 06/23/19 07:15 Potassium 4.2 mmol/L (3.5-5.1) 06/23/19 07:15 Chloride 109 mmol/L (98-107) H 06/23/19 07:15 Carbon Dioxide 27 mmol/L (21-32) 06/23/19 07:15 Anion Gap 6 MMOL/L (8-16) L 06/23/19 07:15 BUN 27.9 mg/dL (7-18) H 06/23/19 07:15 Creatinine 2.9 mg/dL (0.55-1.3) H 06/23/19 07:15 Random Glucose 80 mg/dL (74-106) 06/23/19 07:15 Calcium 8.7 mg/dL (8.5-10.1) 06/23/19 07:15 Total Bilirubin 0.7 mg/dL (0.2-1) 06/23/19 07:15 AST 44 U/L (15-37) H 06/23/19 07:15 ALT 63 U/L (13-61) H 06/23/19 07:15 Alkaline Phosphatase 125 U/L (45-117) H 06/23/19 07:15 Total Protein 6.4 g/dl (6.4-8.2) 06/23/19 07:15 Albumin 3.2 g/dl (3.4-5.0) L 06/23/19 07:15 CARDIAC ENZYMES Creatine Kinase 97 U/L (26-308) 06/20/19 06:50 Current Medications Generic Name Dose Route Start Last Admin Trade Name Freq PRN Reason Stop Dose Admin Acetaminophen 650 mg 06/20/19 17:31 06/23/19 02:04 Tylenol - PO 650 mg Q6H PRN Administration PAIN LEVEL 1 - 3 Famotidine 20 mg 06/21/19 13:45 06/22/19 09:28 Pepcid - PO 20 mg DAILY GISELE Administration Sodium Chloride 1,000 mls @ 100 mls/hr 06/19/19 20:00 06/22/19 20:45 1/2 Normal Saline IV 100 mls/hr ASDIR GISELE Administration Ondansetron HCl 4 mg 06/20/19 18:04 06/20/19 18:52 Zofran Injection IVPB 4 mg Q8H PRN Administration NAUSEA Home Medications Medication Instructions Recorded NK [No Known Home Medication] 06/19/19 Microbiology 06/19/19 20:05 Blood - Peripheral Venous Blood Culture - Preliminary NO GROWTH OBTAINED AFTER 72 HOURS, INCUBATION TO CONTINUE FOR 2 DAYS. 06/19/19 20:05 Blood - Peripheral Venous Blood Culture - Preliminary NO GROWTH OBTAINED AFTER 72 HOURS, INCUBATION TO CONTINUE FOR 2 DAYS. 06/20/19 13:52 Throat Throat Culture - Final NO BETA HEMOLYTIC STREPTOCOCCI ISOLATED 06/19/19 12:45 Urine - Urine Clean Catch Urine Culture - Final NO GROWTH OBTAINED ASSESSMENT AND PLAN: Patient is a 29yom with Pmhx of back pain who presented with flank pain and was found to have YISEL # YISEL : as per dr Bain prelim is ATN , patient will follow up him within a week , also his LFts were trending up , will follow with his primary , or with the resident's clinic and will see Dr. Bain for follow up and CMP . patient was suggested no to take any over the counter medication or any medications prior to discussing with Nephro and his primary. STOP taking Nsaid and stop taking TYLENOL. s/p renal bx pending the prelim read. d/w with dr. melendrez , official read will be available and will be discussed with . # BAck pain: has sciatica .no signs of UTI ; lumbar spine xray neg. back pain improved. dc patient home.
--- NOTE | 2019-07-08 09:11 | PATH ---
Surgical Pathology Report Patient Name: BEAR LARA Med. Rec. #: [id number] /Age/Gender: 1990 (Age: 29) / M Account: [id number] Location: [facility] MED/SURG Taken: 06/22/2019 Received: 06/22/2019 Reported: 07/08/2019 Physicians: Herson Cyr M.D. Specimen(s) Received RENAL BIOPSY Clinical History Bilateral flank pain, dysuria, Acute renal failure Intraoperative Consult Diagnosis Renal biopsy: Glomeruli present. Beny Quintana M.D., 06/22/2019 Final Diagnosis RENAL, BIOPSY: TUBULAR DEGENERATIVE CHANGES AND INTERSTITIAL EDEMA, DIFFUSE, CONSISTENT WITH ACUTE TUBULAR INJURY. SEE COMMENT. Comment: The immunofluorescence findings provide evidence against glomerular disease of the immune complex type. The history of YISEL correlates with the findings of diffuse tubular degenerative changes and interstitial edema, consistent with acute tubular injury. Ischemic and toxic tubular insults should be considered. Electron microscopy is pending and may be contributory. Case sent for consultation to Dr. Vaughn Benitez from [place], [place] ([id number]), the diagnosis above reflects his opinion. Microscopic Description: Sections are stained with H&E, PAS, trichrome, and JMS. Sections show 1 small core of cortex. Eight(8) glomeruli are identified, 1 of which is globally sclerotic. Glomeruli are normal in size. Mesangial areas are remarkable. Glomerular capillary Lumina are patent. Glomerular basement membranes are normal in thickness and contour. There is diffuse acute tubular injury characterized by lumina ectasia, loss of brush borders, coarse clear intracytoplasmic vacuolization, and enlarged nuclei with prominent nucleoli. The acute tubular injury is accompanied by moderate diffuse interstitial edema and patchy mild interstitial inflammation by lymphocytes, monocytes, occasional plasma cells, and rare neutrophils and eosinophils. There is no significant tubular atrophy or interstitial fibrosis. Arterioles and 1 small caliber artery are unremarkable. Immunofluorescence (Procedure): Interpretation: GLOMERULI TUBULES INTERSTITIUM VESSELS IgG 2 gloms neg neg neg neg IgM 2 gloms neg neg neg neg IgA 2 gloms neg neg neg neg C3 2 gloms neg neg neg neg C1 2 gloms neg neg neg neg FBGN 2 gloms neg neg neg neg ALB 2 gloms neg neg neg neg KAPPA 2 gloms neg neg neg neg LAMBDA 2 gloms neg neg neg neg Positive and negative controls show appropriate reactivity. See complete report from [facility], [place], [place] for additional details. Electronically Signed Heather Walker M.D. Gross Description Received in saline labeled "renal biopsy," are 2 may-red, cylindrical portion of soft tissue measuring 0.5 and 0.6 cm in length and averaging 0.1 cm in diameter. The specimen is divided, placed into 10% buffered formalin, Alvin fixative and glutaraldehyde. The specimen is sent to [facility] for further studies. DL06/22/2019 saudi06/22/2019
== END 2019-06-24 12:54 | disposition home or self-care (01) | DRG 469 ==
LOC: JER 11:50 → JERBED 19:04 → J8W 21:57
PROVIDERS: ADMIT Internal Medicine; ATTEND Internal Medicine
PROC: 0TB33ZX Excision of Right Kidney Pelvis, Percutaneous Approach, Diagnostic (ICD-10-PCS; principal; 2019-06-22)
DX: N17.0 Acute kidney failure with tubular necrosis (principal); R80.9 Proteinuria, unspecified; M54.30 Sciatica, unspecified side; R31.9 Hematuria, unspecified; N39.0 Urinary tract infection, site not specified; T39.315A Adverse effect of propionic acid derivatives, initial encounter; M62.82 Rhabdomyolysis
CPT/HCPCS: 36415; 50200; 71045-TC-FY; 72110-TC-FY; 74176-TC; 76775-TC; 76942-TC; 80048; 80053; 81003; 82436; 82550; 82565; 82570; 83036; 83516; 83520; 83690; 83735; 84100; 84133; 84156; 84300; 84443; 85025; 85027; 85610; 86038; 86060; 86160; 86225; 86256; 86704; 86706; 86707; 86708; 86709; 87040; 87070; 87086; 87205; 87340; 87389; 87491; 87522; 87591; 87633; 87804; 87880; 93005; 93010; 99283-25; J0131; J1644; J7030